=== PATIENT | female | born 1945 | race Caucasian/White ===

== ENCOUNTER 2018-04-20 13:22 | Inpatient (IN) | payer MEDICARE ==
--- NOTE | 2018-04-20 15:40 | RAD ---
CHEST ONE VIEW: 04/20/18 COMPARISON: 01/16/14 HISTORY: Weakness. FINDINGS: There are sternotomy wires. Atherosclerosis of the aorta. Normal cardiac silhouette. Pulmonary vessel s and hilum are normal. Costophrenic angles are clear. Chronic changes, without consolidation or mass . No pneumothorax or osseous abnormalities. IMPRESSION: 1. Atherosclerosis. 2. Chronic changes. No acute cardiopulmonary process. POS: [facility]
[2018-04-20 16:19] LABS: #Eosinphils 0.3 thou/uL (0.0-0.7); #Lymphocytes 1.1 thou/uL (1.20-3.40); #Monocytes 0.4 thou/uL (0.11-0.59); #Neutrophils 4.5 thou/uL (1.40-6.50); %Basophils 0.7 % (0.0-1.0); %Eosinophils 4.3 % (0.0-10.0); %Lymphocytes 17.1 % (21.0-51.0); %Monocytes 6.4 % (0.0-10.0); %Neutrophils 71.5 % (42.0-75.0); Hemoglobin 12.6 g/dL (12.0-16.0); Mean Corpuscular Hemoglobin 33.2 pg (27.0-31.0); Mean Platelet Volume 6.8 fL (7.4-10.4); Platelet Count 267 thou/uL (130-400); RBC Distribution Width 11.5 % (11.5-14.5); White Blood Cell (WBC) Count 6.3 thou/uL (4.8-10.8)
[2018-04-20 16:24] LABS: Bilirubin Negative (Negative); Blood, Urine Negative (Negative); Clarity CLEAR (Clear); Glucose, Urine (Dipstick) Negative (Negative); Leukocyte Negative (Negative); Nitrite Negative (Negative); Protein, Urine (Dipstick) Negative (Neg-Trace); Specific Gravity, Urine 1.011 (1.002-1.036); Urobilinogen 0.2 mg/dL (0.2-1.0); pH, Urine 7.5 (5.0-9.0)
--- NOTE | 2018-04-20 16:25 | CT ---
CT HEAD NONCONTRAST: History: Altered mental status. Weakness. FINDINGS: There is no evidence of acute intracranial hemorrhage or infarct. Prominent chronic ischemic small ve ssel disease and diffuse cortical atrophy are apparent. There is no mass effect or shift of midline s tructures. Scattered old lacunar infarcts most noticeable at the right caudate head. Calcification wi thin the arterial structures. IMPRESSION: 1. Chronic type findings and atherosclerosis. 2. No acute intracranial abnormalities are demonstrated. POS: [facility]
[2018-04-20 16:33] LABS: Acetaminophen Less than 6.0 mcg/mL (10.0-30.0); Alcohol Less than 10 mg/dL (Less than 10); Salicylate Less than 8.0 mg/dL (15.0-30.0)
[2018-04-20 16:36] LABS: Amphetamine Not Detected (NotDetected); Barbiturates Screen Detected (NotDetected); Benzodiazepine Screen Detected (NotDetected); Cocaine Metabolite Screen Not Detected (NotDetected); Medtox Control Line Valid? VALID (VALID); Medtox Reader # READER 4; Methadone Not Detected (NotDetected); Methamphetamine Not Detected (NotDetected); Opiate Screen Not Detected (NotDetected); Oxycodone Screen Not Detected (NotDetected); Phencyclidine (PCP) Not Detected (NotDetected); THC/Cannabinoid Screen Not Detected (NotDetected); Tricyclic Screen Not Detected (NotDetected)
[2018-04-20 16:37] LABS: ALT (SGPT) 8 U/L (8-55); AST (SGOT) 14 U/L (5-34); Albumin 4.1 g/dL (3.4-4.8); Alkaline Phosphatase 140 U/L (40-150); Anion Gap 12 mmol/L (10-20); BUN (Urea Nitrogen) 16 mg/dL (9.8-20.1); Bilirubin, Total 0.2 mg/dL (0.2-1.2); CK (CPK) 50 U/L (29-168); Calc. Creatinine Clearance 0 mL/min (70-130); Calcium 9.5 mg/dL (7.8-10.44); Carbon Dioxide 27 mmol/L (23-31); Chloride 99 mmol/L (98-107); Estimated GFR-MDRD 62; Globulin 2.6 g/dL (2.4-3.5); Glucose 101 mg/dL (83-110); Lipase 21 U/L (8-78); Potassium 4.8 mmol/L (3.5-5.1); Protein, Total 6.7 g/dL (6.0-8.3); Sodium 133 mmol/L (136-145)
[2018-04-20] MEDS ORDERED: Sodium Chloride 0.9% 1,000 ML IV SCH (20:04)
[2018-04-20] MEDS ORDERED: hydrALAZINE 20 MG/ML VIAL SLOW IVP PRN (21:17)
[2018-04-20] MEDS ORDERED: diphenhydrAMINE 25 MG CAP PO PRN (21:50)
[2018-04-20] MEDS ORDERED: Acetaminophen 650 MG Suppository PR PRN (21:52)
[2018-04-20] MEDS ORDERED: Guaifenesin DM 100-10/5 ML UDCUP PO PRN (21:52)
[2018-04-20] MEDS ORDERED: Zolpidem Tartrate 5 MG TAB PO PRN (21:52)
[2018-04-20] MEDS ORDERED: Bisacodyl 5 MG TAB PO PRN (21:52)
[2018-04-20] MEDS ORDERED: Senokot S 8.6-50 MG TAB PO PRN (21:52)
[2018-04-20] MEDS ORDERED: Acetaminophen 325 MG TAB PO PRN (21:52)
[2018-04-20] MEDS ORDERED: Dextrose 5% in Water 1,000 ML IV PRN (21:56)
[2018-04-20] MEDS ORDERED: Dextrose 50% Abboject 50 ML SYRINGE SLOW IVP PRN (21:56)
[2018-04-20] MEDS ORDERED: HumaLOG 300 UNITS/3 ML VIAL SC PRN ×2 (21:56)
[2018-04-20] MEDS ORDERED: Nitroglycerin 2% Ointment 1 INCH/1 GM Packet TOP SCH (22:00)
[2018-04-20 23:06] VITALS: BMI 26.2
[2018-04-21 05:58] LABS: Cardiac Risk 2.7 (Less than 4.5)
[2018-04-21] MEDS ORDERED: Loperamide HCl 2 MG CAP PO PRN (07:10)
[2018-04-21] MEDS ORDERED: Eucerin (Mineral Oil/Petrolatum,White) 30 gm Jar TOP PRN (07:10)
[2018-04-21] MEDS ORDERED: HYDROcodone/Acetaminophen 5/325 mg Tablet PO PRN (07:10)
[2018-04-21] MEDS ORDERED: Ondansetron ODT 4 MG TAB PO PRN (07:10)
[2018-04-21] MEDS ORDERED: Diabetic Tussin 200 MG/10 ML UDCUP PO PRN (07:10)
[2018-04-21] MEDS ORDERED: Loratadine 10 MG TAB PO PRN (07:10)
[2018-04-21] MEDS ORDERED: Sodium Chloride 0.65% Nasal 44 ML BOT EA NARE PRN (07:10)
[2018-04-21] MEDS ORDERED: Artificial Tears 18 DROP/0.9 ML EA EYE PRN (07:10)
[2018-04-21] MEDS ORDERED: Cepastat Lozenges 1 LOZ PO PRN (07:10)
[2018-04-21] MEDS ORDERED: Ondansetron PF 4 MG/2 ML Vial IVP PRN (07:10)
[2018-04-21] MEDS ORDERED: Prevnar 13-Val Conj/PF 0.5 ML SYRINGE IM ONE (09:00)
[2018-04-21] MEDS ORDERED: Famotidine 20 MG TAB PO SCH (09:00)
[2018-04-21] MEDS ORDERED: Cyanocobalamin (Vitamin B-12) 1,000 MCG TAB PO SCH (09:00)
[2018-04-21] MEDS ORDERED: Clopidogrel Bisulfate 75 MG TAB PO SCH (09:00)
[2018-04-21] MEDS ORDERED: Atenolol 25 MG TAB PO SCH (09:00)
[2018-04-21] MEDS ORDERED: Famotidine/PF 20 mg/2ml Vial SLOW IVP SCH ×2 (09:00)
[2018-04-21] MEDS ORDERED: Lisinopril 5 MG TAB PO SCH (09:00)
[2018-04-21] MEDS: Lisinopril 20 MG TAB PO SCH (09:48)
[2018-04-21] MEDS: Aspirin 325 MG TAB PO SCH (09:48)
[2018-04-21] MEDS: Calcium Carbonate + Vit D 1 TAB PO SCH ×2 (09:48→22:02)
[2018-04-21] MEDS: Famotidine 20 MG TAB PO SCH (09:48)
[2018-04-21] MEDS: Folic Acid 1 MG TAB PO SCH (09:48)
[2018-04-21] MEDS: Hydrochlorothiazide 25 MG TAB PO SCH (09:49)
[2018-04-21] MEDS: Enoxaparin Sodium 40 MG/0.4 ML SYRINGE SC SCH (09:50)
--- NOTE | 2018-04-21 10:12 | MRI ---
MRI BRAIN WITHOUT CONTRAST: HISTORY: Altered mental status and weakness. FINDINGS: Correlation is made with the CT scan of previous day. Multiple foci of T2 prolongation consistent with chronic small-vessel ischemic disease are seen in th e periventricular white matter. Diffuse cortical atrophy is noted. No restricted diffusion is seen. No evidence of infarct, hemorrhage, midline shift, or abnormal extraaxial fluid collections is seen . The ventricular size is appropriate and the basilar cisterns patent. There is mucosal disease in the paranasal sinuses. IMPRESSION: No evidence of acute intracranial process. POS: [facility]
--- NOTE | 2018-04-21 13:42 | HP ---
PRIMARY CARE PHYSICIAN: Karis Schmidt, nurse practitioner. REASON FOR ADMISSION: Unsteadiness, ataxia. HISTORY OF PRESENT ILLNESS: A 72-year-old female, who has underlying history of epilepsy and she is taking Dilantin therapy. The patient lives at home and for last couple of weeks, the patient was experiencing that she was not able to maintain her balance. She was requiring assistance to walk. She was holding furniture to get around her home. For last couple of days, the patient is even not able to maintain her balance even with holding and she was falling on either side. She did not have any motor weakness. She did not have any upper or lower extremity weakness. She was able to use all 4 limbs without any problem, but only problem was she was not able to maintain her balance. She did not have any diplopia or headache. She did not have any fall or any fall related trauma. She denies any chest pain, palpitation, or fevers. She denies any upper or lower respiratory symptoms. She denies any constipation or diarrhea. She denies any abdominal pain. In the emergency room, she was evaluated. At that time, she was vitals sanchez stable. Her routine blood test showed macrocytosis and Dilantin level was significantly elevated to 45.8. Cardiac markers, BMP, and LFT were unremarkable. The patient denies any orthopnea, PND, or leg swelling. REVIEW OF SYSTEMS: CONSTITUTIONAL: Negative for weight loss or gain, ability to conduct usual activities. SKIN: Negative for rash, itching. EYES: Negative for double vision, pain. ENT/MOUTH: Negative for nose bleeding, neck stiffness, pain, tenderness. CARDIOVASCULAR: Negative for palpitations, dyspnea on exertion, orthopnea. RESPIRATORY: Negative for shortness of breath, wheezing, cough, hemoptysis, fever or night sweats. GASTROINTESTINAL: Negative for poor appetite, abdominal pain, heartburn, nausea, vomiting, constipation, or diarrhea. GENITOURINARY: Negative for urgency, frequency, dysuria, nocturia. MUSCULOSKELETAL: Negative for pain, swelling. NEUROLOGIC/PSYCHIATRIC: Negative for anxiety, depression. ALLERGY/IMMUNOLOGIC: Negative for skin rash, bleeding tendency. Please see my HPI for pertinent positives and negatives. All other review of system reviewed and negative except as mentioned in HPI. PAST MEDICAL HISTORY: Coronary artery disease with history of CABG in 2003. The patient also required stent placement in 2004, diabetes type 2, hypertension, dyslipidemia, epilepsy, and hypothyroidism. PAST SURGICAL HISTORY: CABG in 2004, cholecystectomy, x2, and appendicectomy. PAST PSYCHIATRIC HISTORY: Reviewed and negative. ALLERGIES: NO KNOWN DRUG ALLERGIES. CURRENT HOME MEDICATIONS: 1. Calcium with vitamin D 1 tablet p.o. b.i.d. 2. Vitamin D3 of 5000 units p.o. daily. 3. Vitamin B12 of 500 mcg p.o. daily. 4. Hydrochlorothiazide 12.5 mg daily. 5. Synthroid 25 mcg p.o. daily. 6. Lisinopril 40 mg daily. 7. Dilantin 200 mg p.o. b.i.d. 8. Pravastatin 40 mg p.o. every evening. SOCIAL HISTORY: The patient currently lives in small trailer house. She lives with family. No history of tobacco, alcohol, or illicit drug abuse. FAMILY HISTORY: Positive for diabetes, heart disease among several family members. Mother had lung cancer. Emergency room course reviewed. PHYSICAL EXAMINATION: VITAL SIGNS: On arrival; blood pressure 173/75, pulse 63, respiratory rate 18, temperature 98.6, and saturation 98% on room air. Weight 54.4 kg. GENERAL: The patient is currently alert and oriented x3. No obvious acute distress. HEENT: Head; normocephalic and atraumatic. Eyes; pupils round and reactive to light. Mild nystagmus noted horizontally. NECK: Supple. No JVD. No thyromegaly. No carotid bruit. No jugular venous distention. LUNGS: Clear to auscultation without any rhonchi or rales. CARDIAC: S1 and S2 regular. No murmur. No gallop. No rub. ABDOMEN: Soft. Bowel sounds present. Nontender. Nondistended. No organomegaly. No mass. No suprapubic tenderness. BACK: Unremarkable. No CVA tenderness. EXTREMITIES: Upper extremities; passive movement of all joints is normal. Lower extremity; no edema. Good distal pulsation. No calf tenderness. SKIN: No skin rash. HEMATOLOGIC: No lymphadenopathy. NEUROLOGIC: The patient is alert and oriented x3. Cranial nerve 2 through 12 intact except mild horizontal nystagmus. The patient is not able to maintain her balance while gait testing, but the patient does not have any obvious cerebellar signs. Speech normal. Plantar bilateral flexor reflexes symmetrical. Sensation intact. SIGNIFICANT LABORATORY DATA: EKG showing sinus bradycardia, nonspecific ST-T changes. CT of brain, based on my review, no acute intracranial process. MRI of brain obtained, which is also negative for any acute intracranial process. CBC; WBC 6.3, hemoglobin 12.6, MCV 101, platelets 267. BMP; sodium 133, potassium 4.8, chloride 99, carbon dioxide 27, BUN 16, creatinine 0.89, glucose 101, calcium 9.5. LFT; AST 14, ALT 8, alkaline phosphatase 140, albumin 4.1, and ammonia 34. CK 50. Troponin negative. CRP less than 0.50. Lipase 21. TSH 3.05, triglyceride 91, cholesterol 176, LDL 93, HDL 65. Urinalysis normal. Urine drug screen negative. Dilantin level 45.8. Serum drug screen negative. Chest x-ray based on my review, no acute cardiopulmonary process. ASSESSMENT AND PLAN: Impression: 1. Ataxia, most likely due to Dilantin toxicity. This patient's examination and MRI findings are normal. Does not have any cerebellar etiology. At this point, the patient has supratherapeutic Dilantin level that can explain patient's unsteadiness and ataxia and that is why she is not able to maintain her balance. At this point, I will hold Dilantin therapy. Neurology already consulted and they will decide whether we need to change epilepsy medication to prevent a future problem. We will prefer if we start Keppra 500 mg p.o. b.i.d. in this particular patient because of her history of epilepsy. We will defer that part to Neurology. We will observe this patient while in hospital. She will need PT/OT evaluation. Once her ataxia resolved, then we will consider discharging plan. At this point, the patient does not have any sensory or motor level based on examination. 2. History of diabetes, currently the patient is not taking any medications. She is diet controlled. 3. Hypertension. We will continue lisinopril 40 mg p.o. daily and hydrochlorothiazide 12.5 mg p.o. daily. 4. Macrocytosis. We will start folic acid 1 mg daily and vitamin B12 of 1000 mcg p.o. daily, likely macrocytosis related with Dilantin use. 5. Dyslipidemia. We will continue Lipitor 10 mg p.o. at bedtime. 6. Deep venous thrombosis prophylaxis, Lovenox 40 mg subcu daily. 7. Gastrointestinal prophylaxis, Pepcid 20 mg p.o. daily. CODE STATUS: The patient is full code. The patient does not have any surrogate decision maker. DISPOSITION PLAN: Based on clinical course, we are expecting the patient's stay in hospital more than 2 midnights. Tomorrow, we will check a CK level and vitamin B12 level. Plan of care extensively discussed with the patient in detail. Job ID: [id number]
--- NOTE | 2018-04-21 18:48 | CON ---
DATE OF CONSULTATION: 04/21/2018 REFERRING PHYSICIAN: Todd Mccoy MD REASON FOR NEUROLOGY CONSULT: Leg weakness. HISTORY OF PRESENT ILLNESS: This is a 72-year-old female who states that her legs have been weak for about two weeks. She says it is really not a weakness, it is more of a balance problem. She has a chronic history of double vision, for which she wore prisms in her glasses. She does not have any weakness of her arms. No nausea or vomiting. Her chronic medical problems include seizure disorder for many, many years, coronary artery disease, hypertension, and recent diagnosis of hypothyroidism, she states that she was started on thyroid medication about three weeks ago. She states that she usually takes Dilantin 200 mg in the morning and 200 mg at night and has regular Dilantin levels, but does not think she has had one recently before this admission. PAST MEDICAL HISTORY: Coronary artery disease, hypertension, seizure disorder. She states that her seizures are grand mal seizures and sometimes she has had absent spells. She feels that her seizures are pretty well controlled on the Dilantin. She is not under the care of a neurologist. She has had workups for her seizures in the past and that she was told that they were grand mal seizures and she has been on Dilantin for more than 50 years. She has had diabetes, epilepsy. REVIEW OF SYSTEMS: GENERAL: No fevers or chills. ENT: No stridor. No epistasis. EYES: No photophobia. CARDIOVASCULAR: No chest pain. No passing out. RESPIRATORY: No cough. No shortness of breath. GI: No diarrhea. No constipation. MUSCULOSKELETAL: No joint redness or swelling. SKIN: No rash. No bruising. NEUROLOGIC: No focal weakness. She states that she has had balance problems for about two weeks. HEME: No abnormal clotting. No bleeding tendencies. PAST SURGICAL HISTORY: She has had appendectomy, coronary artery bypass graft, cholecystectomy, , and left knee surgery due to broken kneecap. SOCIAL HISTORY: She does not smoke or drink. Lives at home with family. FAMILY HISTORY: Negative. PHYSICAL EXAMINATION: GENERAL: She is well nourished, awake and alert. VITAL SIGNS: Blood pressure 154/84, pulse 63 regular, temperature 98.9, respiratory rate 18, and O2 saturation 97. HEENT: Negative. No adenopathy. LUNGS: Clear. HEART: No murmurs or gallops. ABDOMEN: Not distended. SKIN: No rashes. JOINTS: No swelling. EXTREMITIES: No clubbing, cyanosis, or edema. NEUROLOGICAL: She is awake, alert, and oriented x3. Cranial nerves 2 through 12 test normally. Pupils are 2 mm and reactive. Carotids no bruits. Motor 5/5 strength in the arms and legs including proximally 5/5 strength. There is a mild fast tremor of the outstretched hands. She states that is of recent onset, maybe 2 or 3 weeks. Coordination, [id number], and [id number] is normal. DTRs are 2+. Toes are downgoing. Sensation is normal to light touch and temperature. LABORATORY AND DIAGNOSTIC FINDINGS: Test results showed that a CT of the head and MRI of the brain shows chronic changes, some atrophy and chronic small-vessel disease. There was no acute stroke. Chest x-ray showed sternotomy wires, atherosclerosis of the aorta. Labs show that there was a Dilantin level on 04/20/2018 of 45.8, therapeutic is 10 to 20. There were also some barbiturates in the urine and benzodiazepines in the urine. Other labs showed a white count of 6.3, hemoglobin 12.6, hematocrit 38.2, MCV 101, MCH 33.2. The patient states she does have a history of low B12 and is on supplementation. Her sedimentation rate was less than 1. Chemistry showed a glucose of 86, triglyceride 91, cholesterol 176, LDL is 93, HDL is 65, TSH is 3.0588. Troponin less than 0.010. Urinalysis showed no protein, no glucose, no ketones, no blood, no nitrites, leukocyte esterase was negative, and the pH was 7.5. CURRENT MEDICATIONS: Current medications in the hospital; 1. Hydrocodone. 2. Artificial Tears. 3. One aspirin a day. 4. Lipitor. 5. Vitamin B12 1000 mcg daily orally. 6. Pepcid. 7. Hydrochlorothiazide. 8. Levothyroxine 25 mcg p.o. daily. 9. Zestril. IMPRESSION: Her neurological examination is normal. She does have what looks like an essential tremor, which she states is of recent onset. Her Dilantin level is high, which could explain her imbalance problem. There does not appear to be any acute stroke or spinal cord problem. PLAN: We will hold her Dilantin and check daily Dilantin levels and restart her Dilantin at a lower dose when her level is closer to 20. Also check her CPK and her B12 level. Possibly the recent starting of the levothyroxine possibly may have interacted with the Dilantin and made the level go up. Job ID: [id number]
[2018-04-21] MEDS ORDERED: Pravastatin Sodium 40 MG TAB PO SCH (21:00)
[2018-04-21] MEDS: Atorvastatin Calcium 10 MG TAB PO SCH (22:02)
[2018-04-22] MEDS: Levothyroxine Sodium 25 MCG TAB PO SCH (06:02)
[2018-04-22] MEDS: Hydrochlorothiazide 25 MG TAB PO SCH (08:38)
[2018-04-22] MEDS: Enoxaparin Sodium 40 MG/0.4 ML SYRINGE SC SCH (08:38)
[2018-04-22] MEDS: Famotidine 20 MG TAB PO SCH (08:38)
[2018-04-22] MEDS: Calcium Carbonate + Vit D 1 TAB PO SCH ×2 (08:39→21:54)
[2018-04-22] MEDS: Lisinopril 20 MG TAB PO SCH (08:40)
[2018-04-22] MEDS: Folic Acid 1 MG TAB PO SCH (08:40)
[2018-04-22] MEDS: Aspirin 325 MG TAB PO SCH (08:40)
--- NOTE | 2018-04-22 10:13 | PDOC.PN ---
- Subjective Encounter Start Date: 04/22/18 Encounter Start Time: 07:10 -: old records requested/rev Patient seen and examined. No new complaints. No overnight events pt feels better, less weak - Objective Resuscitation Status - Order Detail: 04/20/18 21:52 Resuscitation Status Routine Resuscitation Status: FULL: Full Resuscitation MAR Reviewed: Yes Vital Signs & Weight: Vital Signs (12 hours) Temp Pulse Resp BP BP Pulse Ox 04/22/18 08:40 155/79 H 04/22/18 07:49 99.1 F 62 20 155/79 H 96 04/22/18 04:10 98.4 F 62 20 146/76 H 98 Weight Weight 117 lb 1.6 oz I&O: 04/21/18 04/22/18 04/23/18 06:59 06:59 06:59 Intake Total 500 Balance 500 Result Diagrams: 04/20/18 16:00 04/20/18 16:00 Additional Labs: Accuchecks 04/22/18 04/21/18 04/21/18 05:18 21:24 16:34 POC Glucose 85 91 86 04/21/18 10:27 POC Glucose 88 Radiology Reviewed by me: Yes (MRI brain normal, echo normal) EKG Reviewed by me: Yes (nsr) Phys Exam - Physical Examination Constitutional: NAD HEENT: PERRLA, moist MMs, sclera anicteric Neck: no JVD, supple Respiratory: no wheezing, no rales, no rhonchi Cardiovascular: RRR, no significant murmur, no rub Gastrointestinal: soft, non-tender, no distention, positive bowel sounds Musculoskeletal: no edema, pulses present Neurological: non-focal, normal sensation, moves all 4 limbs tremor reduced Lymphatic: no nodes Psychiatric: normal affect, A&O x 3 Skin: no rash, normal turgor Dx/Plan (1) Ataxia Code(s): R27.0 - ATAXIA, UNSPECIFIED Status: Acute (2) Dilantin toxicity Code(s): T42.0X1A - POISONING BY HYDANTOIN DERIVATIVES, ACCIDENTAL, INIT Status: Acute (3) Dyslipidemia Code(s): E78.5 - HYPERLIPIDEMIA, UNSPECIFIED Status: Chronic (4) Epilepsy Code(s): G40.909 - EPILEPSY, UNSP, NOT INTRACTABLE, WITHOUT STATUS EPILEPTICUS Status: Chronic (5) Hypertension Code(s): I10 - ESSENTIAL (PRIMARY) HYPERTENSION Status: Chronic (6) Hypothyroidism Code(s): E03.9 - HYPOTHYROIDISM, UNSPECIFIED Status: Chronic - Plan cont current plan of care, PT/OT, psychosocial rehabilitation counselor * still dilantin level high, will continue to hold * pt does not want to change antiepileptic medication * discussed with neurology * continue PT * will need placement on discharge * medication reviewed as below * symptomatic treatment. Review of Systems - Review of Systems Constitutional: negative: fever, chills, sweats, weakness, malaise, other Eyes: negative: Pain, Vision Change, Conjunctivae Inflammation, Eyelid Inflammation, Redness, Other ENT: negative: Ear Pain, Ear Discharge, Nose Pain, Nose Discharge, Nose Congestion, Mouth Pain, Mouth Swelling, Throat Pain, Throat Swelling, Other Respiratory: negative: Cough, Dry, Shortness of Breath, Hemoptysis, SOB with Excertion, Pleuritic Pain, Sputum, Wheezing Cardiovascular: negative: chest pain, palpitations, orthopnea, paroxysmal nocturnal dyspnea, edema, light headedness, other Gastrointestinal: negative: Nausea, Vomiting, Abdominal Pain, Diarrhea, Constipation, Melena, Hematochezia, Other Genitourinary: negative: Dysuria, Frequency, Incontinence, Hematuria, Retention , Other Musculoskeletal: negative: Neck Pain, Shoulder Pain, Arm Pain, Back Pain, Hand Pain, Leg Pain, Foot Pain, Other Skin: negative: Rash, Lesions, Jerry, Bruising, Other Neurological: Incoordination. negative: Weakness, Numbness, Change in Speech, Confusion, Seizures, Other - Medications/Allergies Allergies/Adverse Reactions: Allergies Allergy/AdvReac Type Severity Reaction Status Date / Time No Known Allergies Allergy Verified 01/16/14 18:13 Medications: Current Medications Acetaminophen (Tylenol) 650 mg PO Q4H PRN PRN Reason: Headache/Fever/Mild Pain (1-3) Hydrocodone Bitart/Acetaminophen ([place] 5/325) 1 tab PO Q4H PRN PRN Reason: Moderate Pain (4-6) Artificial Tears (Tears Naturale) 2 drop EA EYE PRN PRN PRN Reason: Dry Eyes Aspirin (Aspirin) 325 mg PO DAILY [facility] Last Admin: 04/22/18 08:40 Dose: 325 mg Atorvastatin Calcium (Lipitor) 10 mg PO QPM [facility] Last Admin: 04/21/18 22:02 Dose: 10 mg Bisacodyl (Dulcolax) 10 mg PO DAILYPRN PRN PRN Reason: Constipation Calcium/Vitamin D (Caltrate 600 + Vit D) 1 tab PO BID [facility] Last Admin: 04/22/18 08:39 Dose: 1 tab Cholecalciferol (Vitamin D3) 5,000 units PO DAILY [facility] Last Admin: 04/22/18 08:40 Dose: 5,000 units Cyanocobalamin (Vitamin B-12) 1,000 mcg PO DAILY [facility] Dextrose/Water (Dextrose 50%) 25 gm SLOW IVP PRN PRN PRN Reason: Hypoglycemia Diphenhydramine HCl (Benadryl) 25 mg PO Q6H PRN PRN Reason: Itching Enoxaparin Sodium (Lovenox) 40 mg SC 0900 [facility] Last Admin: 04/22/18 08:38 Dose: 40 mg Famotidine (Pepcid) 20 mg PO QAM [facility] Last Admin: 04/22/18 08:38 Dose: 20 mg Folic Acid (Folvite) 1 mg PO DAILY [facility] Last Admin: 04/22/18 08:40 Dose: 1 mg Glucagon (Glucagon) 1 mg IM PRN PRN PRN Reason: Hypoglycemia Guaifenesin (Robitussin Sf) 200 mg PO Q4H PRN PRN Reason: Cough Guaifenesin/Dextromethorphan (Robitussin Dm) 15 ml PO Q4H PRN PRN Reason: Cough Hydralazine HCl (Apresoline) 10 mg SLOW IVP Q4H PRN PRN Reason: BP > 220/110 Last Admin: 04/20/18 21:26 Dose: 10 mg Hydrochlorothiazide (Hydrochlorothiazide) 12.5 mg PO DAILY [facility] Last Admin: 04/22/18 08:38 Dose: 12.5 mg Dextrose/Water (D5w) 1,000 mls @ 0 mls/hr IV .Q0M PRN PRN Reason: Hypoglycemia Insulin Human Lispro (Humalog) 0 units SC .MILD SLIDING SCALE PRN PRN Reason: Mild Correctional Scale Insulin Human Lispro (Humalog) 0 units SC .BEDTIME SLIDING SC PRN PRN Reason: Bedtime Correctional Scale Levothyroxine Sodium (Synthroid) 25 mcg PO 0600 [facility] Last Admin: 04/22/18 06:02 Dose: 25 mcg Lisinopril (Zestril) 40 mg PO DAILY [facility] Last Admin: 04/22/18 08:40 Dose: 40 mg Loperamide HCl (Imodium) 2 mg PO PRN PRN PRN Reason: Diarrhea/Loose Stools Loratadine (Claritin) 10 mg PO DAILYPRN PRN PRN Reason: Sinus Symptoms Mineral Oil/White Petrolatum (Eucerin Cream) 0 gm TOP BIDPRN PRN PRN Reason: Dry Skin Ondansetron HCl (Zofran Odt) 4 mg PO Q6H PRN PRN Reason: Nausea/Vomiting Ondansetron HCl (Zofran) 4 mg IVP Q6H PRN PRN Reason: Nausea/Vomiting Senna/Docusate Sodium (Senokot S) 2 tab PO BIDPRN PRN PRN Reason: Constipation Sodium Chloride (Flush - Normal Saline) 10 ml IVF PRN PRN PRN Reason: Saline Flush Last Admin: 04/21/18 21:59 Dose: 10 ml Sodium Chloride ([place] Nasal [place] 0.65%) 0 ml EA NARE QIDPRN PRN PRN Reason: Nasal Congestion Throat Lozenges (Cepastat Lozenges) 1 win PO Q2H PRN PRN Reason: Sore Throat Zolpidem Tartrate (Ambien) 5 mg PO HSPRN PRN PRN Reason: Insomnia
[2018-04-22] MEDS: Cyanocobalamin (Vitamin B-12) 1,000 MCG TAB PO SCH (10:17)
--- NOTE | 2018-04-22 10:34 | PRG ---
DATE OF SERVICE: 04/22/2018 TYPE OF REPORT: Followup Neurology. PRESENT ILLNESS: Neurology followup for Dilantin toxicity and seizure disorder. The patient states that her balance is a little better today. She has been calling for assistance when she gets up as instructed. She has not had any seizures. She has been on Dilantin for 50 years with pretty good control of her seizures. She also states that she has had like a 30-pound weight loss in the last year. She says it is purposeful. She was recently started on Synthroid about 3 weeks ago. Her Dilantin is still on hold because her level was high. OBJECTIVE: VITAL SIGNS: Temperature 99.1, pulse is 62, respiratory rate is 20, O2 saturation is 96%, blood pressure is 155/79. NEUROLOGIC: She is awake, alert, oriented x3. No nystagmus is seen. Motor 5/5 strength. There is a very minimal tremor of her outstretched hands which is better than yesterday. Coordination is normal. DTRs 2+. LABORATORY DATA: The Dilantin level today is 34.0, therapeutic is 10 to 20. On the , it was 45.8, so it has come down some, on 04/22/2018 it is 34.0. IMPRESSION: Seizure disorder, which is pretty well controlled on Dilantin, possibly her Dilantin level went up due to her weight loss and possibly after the addition of the Synthroid a few weeks ago. PLAN: Discussed with the patient changing to Keppra instead of the Dilantin. She is reluctant to change as am I since she has been pretty well controlled on Dilantin all these years. Advised that she keep a close watch on her Dilantin level with her family doctor and to follow up with Neurology after she gets out. She is advised to not drive because of her seizures, however, she has not had a seizure in many years. We will continue to hold her Dilantin because her level is still high at 34 and when it gets close to 20, we will start it at a lower dose. As an outpatient, she was on 200 mg twice a day, so we will start her off at a lower dose, possibly 300 mg once a day of the extended release. We will get a Dilantin level in the morning and see where the Dilantin level is. Job ID: [id number]
--- NOTE | 2018-04-22 13:17 | EKG ---
Test Reason : Blood Pressure : / mmHG Vent. Rate : 058 BPM Atrial Rate : 058 BPM P-R Int : 164 ms QRS Dur : 092 ms QT Int : 444 ms P-R-T Axes : 000 -25 133 degrees QTc Int : 435 ms Sinus bradycardia RSR' or QR pattern in V1 suggests right ventricular conduction delay Left ventricular hypertrophy with repolarization abnormality Abnormal ECG Confirmed by HARMONY GALLEGOS, SHAUN ([id number]), newspaper photo editor OLGA SMAS ([id number]) on 04/22/2018 1:17:07 PM Referred By: Confirmed By:SHAUN ANTUNEZ MD
[2018-04-22] MEDS: Atorvastatin Calcium 10 MG TAB PO SCH (21:54)
[2018-04-23] MEDS: Levothyroxine Sodium 25 MCG TAB PO SCH (05:55)
[2018-04-23] MEDS: Aspirin 325 MG TAB PO SCH (09:07)
[2018-04-23] MEDS: Calcium Carbonate + Vit D 1 TAB PO SCH ×2 (09:07→21:22)
[2018-04-23] MEDS: Enoxaparin Sodium 40 MG/0.4 ML SYRINGE SC SCH (09:07)
[2018-04-23] MEDS: Folic Acid 1 MG TAB PO SCH (09:08)
[2018-04-23] MEDS: Cyanocobalamin (Vitamin B-12) 1,000 MCG TAB PO SCH (09:08)
[2018-04-23] MEDS: Famotidine 20 MG TAB PO SCH (09:08)
[2018-04-23] MEDS: Lisinopril 20 MG TAB PO SCH (09:08)
[2018-04-23] MEDS: Hydrochlorothiazide 25 MG TAB PO SCH (09:08)
--- NOTE | 2018-04-23 10:25 | PDOC.PN ---
- Subjective Encounter Start Date: 04/23/18 Encounter Start Time: 07:10 p has foot pain when she walk, no swelling, she reports she stepped on hard object, no local skin irritation, she has fungal infection in intertriginous area in both feet - Objective Resuscitation Status - Order Detail: 04/20/18 21:52 Resuscitation Status Routine Resuscitation Status: FULL: Full Resuscitation MAR Reviewed: Yes Vital Signs & Weight: Vital Signs (12 hours) Temp Pulse Resp BP BP BP Pulse Ox 04/23/18 09:08 162/87 H 04/23/18 07:57 99.5 F 63 18 162/87 H 98 04/23/18 03:07 98.9 F 54 L 20 168/79 H 99 04/23/18 00:20 157/83 H 04/22/18 23:10 99.3 F 70 20 166/94 H 98 Weight Weight 117 lb 1.6 oz I&O: 04/22/18 04/23/18 04/24/18 06:59 06:59 06:59 Intake Total 520 Balance 520 Result Diagrams: 04/20/18 16:00 04/20/18 16:00 Additional Labs: Accuchecks 04/23/18 04/22/18 04/22/18 05:32 20:38 16:59 POC Glucose 85 94 82 04/22/18 10:27 POC Glucose 144 H EKG Reviewed by me: Yes (nsr) Phys Exam - Physical Examination Constitutional: NAD HEENT: PERRLA, moist MMs, sclera anicteric Neck: no JVD, supple Respiratory: no wheezing, no rales, no rhonchi Cardiovascular: RRR, no significant murmur, no rub Gastrointestinal: soft, non-tender, no distention, positive bowel sounds Musculoskeletal: no edema, pulses present Neurological: non-focal, normal sensation, moves all 4 limbs tremor reducing Lymphatic: no nodes Psychiatric: normal affect, A&O x 3 Skin: no rash, normal turgor Dx/Plan (1) Ataxia Code(s): R27.0 - ATAXIA, UNSPECIFIED Status: Acute (2) Dilantin toxicity Code(s): T42.0X1A - POISONING BY HYDANTOIN DERIVATIVES, ACCIDENTAL, INIT Status: Acute (3) Dyslipidemia Code(s): E78.5 - HYPERLIPIDEMIA, UNSPECIFIED Status: Chronic (4) Epilepsy Code(s): G40.909 - EPILEPSY, UNSP, NOT INTRACTABLE, WITHOUT STATUS EPILEPTICUS Status: Chronic (5) Hypertension Code(s): I10 - ESSENTIAL (PRIMARY) HYPERTENSION Status: Chronic (6) Hypothyroidism Code(s): E03.9 - HYPOTHYROIDISM, UNSPECIFIED Status: Chronic - Plan cont current plan of care, PT/OT, executive secretary social welfare * nystatin topical powder application as directed * add amlodipine for hypertension * continue PT * will need swing bed on discharge * medication reviewed as below * symptomatic treatment * will recheck dilantin tomorrow. Review of Systems - Review of Systems ENT: negative: Ear Pain, Ear Discharge, Nose Pain, Nose Discharge, Nose Congestion, Mouth Pain, Mouth Swelling, Throat Pain, Throat Swelling, Other Respiratory: negative: Cough, Dry, Shortness of Breath, Hemoptysis, SOB with Excertion, Pleuritic Pain, Sputum, Wheezing Cardiovascular: negative: chest pain, palpitations, orthopnea, paroxysmal nocturnal dyspnea, edema, light headedness, other Gastrointestinal: negative: Nausea, Vomiting, Abdominal Pain, Diarrhea, Constipation, Melena, Hematochezia, Other Genitourinary: negative: Dysuria, Frequency, Incontinence, Hematuria, Retention , Other Musculoskeletal: Foot Pain. negative: Neck Pain, Shoulder Pain, Arm Pain, Back Pain, Hand Pain, Leg Pain, Other Skin: negative: Rash, Lesions, Jerry, Bruising, Other - Medications/Allergies Allergies/Adverse Reactions: Allergies Allergy/AdvReac Type Severity Reaction Status Date / Time No Known Allergies Allergy Verified 01/16/14 18:13 Medications: Current Medications Acetaminophen (Tylenol) 650 mg PO Q4H PRN PRN Reason: Headache/Fever/Mild Pain (1-3) Hydrocodone Bitart/Acetaminophen ([place] 5/325) 1 tab PO Q4H PRN PRN Reason: Moderate Pain (4-6) Artificial Tears (Tears Naturale) 2 drop EA EYE PRN PRN PRN Reason: Dry Eyes Aspirin (Aspirin) 325 mg PO DAILY [facility] Last Admin: 04/23/18 09:07 Dose: 325 mg Atorvastatin Calcium (Lipitor) 10 mg PO QPM [facility] Last Admin: 04/22/18 21:54 Dose: 10 mg Bisacodyl (Dulcolax) 10 mg PO DAILYPRN PRN PRN Reason: Constipation Calcium/Vitamin D (Caltrate 600 + Vit D) 1 tab PO BID [facility] Last Admin: 04/23/18 09:07 Dose: 1 tab Cholecalciferol (Vitamin D3) 5,000 units PO DAILY [facility] Last Admin: 04/23/18 09:07 Dose: 5,000 units Cyanocobalamin (Vitamin B-12) 1,000 mcg PO DAILY [facility] Last Admin: 04/23/18 09:08 Dose: 1,000 mcg Dextrose/Water (Dextrose 50%) 25 gm SLOW IVP PRN PRN PRN Reason: Hypoglycemia Diphenhydramine HCl (Benadryl) 25 mg PO Q6H PRN PRN Reason: Itching Enoxaparin Sodium (Lovenox) 40 mg SC 0900 [facility] Last Admin: 04/23/18 09:07 Dose: 40 mg Famotidine (Pepcid) 20 mg PO QAM [facility] Last Admin: 04/23/18 09:08 Dose: 20 mg Folic Acid (Folvite) 1 mg PO DAILY [facility] Last Admin: 04/23/18 09:08 Dose: 1 mg Glucagon (Glucagon) 1 mg IM PRN PRN PRN Reason: Hypoglycemia Guaifenesin (Robitussin Sf) 200 mg PO Q4H PRN PRN Reason: Cough Guaifenesin/Dextromethorphan (Robitussin Dm) 15 ml PO Q4H PRN PRN Reason: Cough Hydralazine HCl (Apresoline) 10 mg SLOW IVP Q4H PRN PRN Reason: BP > 220/110 Last Admin: 04/20/18 21:26 Dose: 10 mg Hydrochlorothiazide (Hydrochlorothiazide) 12.5 mg PO DAILY [facility] Last Admin: 04/23/18 09:08 Dose: 12.5 mg Dextrose/Water (D5w) 1,000 mls @ 0 mls/hr IV .Q0M PRN PRN Reason: Hypoglycemia Insulin Human Lispro (Humalog) 0 units SC .MILD SLIDING SCALE PRN PRN Reason: Mild Correctional Scale Insulin Human Lispro (Humalog) 0 units SC .BEDTIME SLIDING SC PRN PRN Reason: Bedtime Correctional Scale Levothyroxine Sodium (Synthroid) 25 mcg PO 0600 [facility] Last Admin: 04/23/18 05:55 Dose: 25 mcg Lisinopril (Zestril) 40 mg PO DAILY [facility] Last Admin: 12/16/18 09:08 Dose: 40 mg Loperamide HCl (Imodium) 2 mg PO PRN PRN PRN Reason: Diarrhea/Loose Stools Loratadine (Claritin) 10 mg PO DAILYPRN PRN PRN Reason: Sinus Symptoms Mineral Oil/White Petrolatum (Eucerin Cream) 0 gm TOP BIDPRN PRN PRN Reason: Dry Skin Ondansetron HCl (Zofran Odt) 4 mg PO Q6H PRN PRN Reason: Nausea/Vomiting Ondansetron HCl (Zofran) 4 mg IVP Q6H PRN PRN Reason: Nausea/Vomiting Senna/Docusate Sodium (Senokot S) 2 tab PO BIDPRN PRN PRN Reason: Constipation Sodium Chloride (Flush - Normal Saline) 10 ml IVF PRN PRN PRN Reason: Saline Flush Last Admin: 04/21/18 21:59 Dose: 10 ml Sodium Chloride ([place] Nasal [place] 0.65%) 0 ml EA NARE QIDPRN PRN PRN Reason: Nasal Congestion Throat Lozenges (Cepastat Lozenges) 1 win PO Q2H PRN PRN Reason: Sore Throat Zolpidem Tartrate (Ambien) 5 mg PO HSPRN PRN PRN Reason: Insomnia
[2018-04-23] MEDS ORDERED: Amlodipine 5 MG TAB PO SCH (10:30)
--- NOTE | 2018-04-23 14:19 | PRG ---
DATE OF SERVICE: 04/23/2018 NEUROLOGY FOLLOWUP NOTE PRESENT ILLNESS: Followup for Dilantin toxicity and gait problems. The patient states that she is feeling better and better every day. Her Dilantin is still on hold. She was on Dilantin 200 mg twice a day as an outpatient. About 1 week prior to her balance getting worse, she was started on a low dose of Synthroid for hypothyroidism. She states that she is still calling for nursing program director when she gets up to go to the bathroom or to walk around, but she feels that her balance is much better. She does not complain of weakness of her arms or legs, but mainly balance problems and she denies any numbness. OBJECTIVE: VITAL SIGNS: On exam, blood pressure of 133/75, pulse 60, temperature 98, respiratory rate 20, and O2 saturation is 97% on room air. HEENT: Normal. LUNGS: Clear. EXTREMITIES: No clubbing, cyanosis, or edema. NEUROLOGIC: Awake, alert, and oriented x3. Cranial nerves II through XII are intact. There is no nystagmus. Motor 5/5 strength in the arms and legs. There is no tremor of the outstretched hands. She did have a tremor on admission when her Dilantin level was higher. LABORATORY DATA: Review of labs showed that her Dilantin level today has slowly come down. It is now 28.1, which is still too elevated to restart the Dilantin. Note that her albumin on admission was normal at 4.1. IMPRESSION: The patient had ataxia due to her Dilantin level being too high. She is getting better as the Dilantin level is coming down. PLAN: Recommend restart the Dilantin when her level gets closer to 20, possibly 24 or less. Recommend to start her on Dilantin extended release 300 mg one p.o. daily and she should have close watch of her Dilantin level, CBC, and liver profile, and she should follow up with Neurology when she gets out. Note that the patient has not had a seizure in many years. Seizure precautions were discussed with her. We will get a Dilantin level tomorrow and see where it is and see if we can start her on Dilantin. Job ID: [id number]
[2018-04-23] MEDS: Atorvastatin Calcium 10 MG TAB PO SCH (21:22)
[2018-04-23] MEDS: Nystatin Powder 15 GM BOT TOP SCH (21:22)
[2018-04-24] MEDS: Levothyroxine Sodium 25 MCG TAB PO SCH (06:11)
[2018-04-24] MEDS ORDERED: Hydrochlorothiazide 25 MG TAB PO SCH (07:30)
[2018-04-24] MEDS: Enoxaparin Sodium 40 MG/0.4 ML SYRINGE SC SCH (08:21)
[2018-04-24] MEDS: Aspirin 325 MG TAB PO SCH (08:21)
[2018-04-24] MEDS: Lisinopril 20 MG TAB PO SCH (08:23)
[2018-04-24] MEDS: Cyanocobalamin (Vitamin B-12) 1,000 MCG TAB PO SCH (08:23)
[2018-04-24] MEDS: Famotidine 20 MG TAB PO SCH (08:24)
[2018-04-24] MEDS: Folic Acid 1 MG TAB PO SCH (08:24)
[2018-04-24] MEDS: Nystatin Powder 15 GM BOT TOP SCH (08:24)
[2018-04-24] MEDS: Calcium Carbonate + Vit D 1 TAB PO SCH (08:24)
[2018-04-24] MEDS ORDERED: Amlodipine 5 MG TAB PO SCH ×2 (09:00)
[2018-04-24] MEDS ORDERED: Amlodipine 10 MG TAB PO SCH (09:00)
--- NOTE | 2018-04-24 11:53 | DIS ---
DATE OF ADMISSION: 04/20/2018 DATE OF DISCHARGE: 04/24/2018 PRIMARY CARE PHYSICIAN: [facility] Call Admission. DISCHARGE DISPOSITION: retirement home. PRIMARY DISCHARGE DIAGNOSIS: Ataxia due to Dilantin toxicity. SECONDARY DISCHARGE DIAGNOSES: 1. Hypertension. 2. Hypothyroidism. 3. Epilepsy. 4. Dyslipidemia. PRIMARY PROCEDURE/OPERATION: None. RADIOLOGICAL INVESTIGATIONS: Chest x-ray showed no acute cardiopulmonary process. CT brain negative for any acute intracranial process. MRI brain did not show any acute intracranial process. Echocardiography showed normal EF. LABORATORY DATA: Significant labs; WBC 6.3, hemoglobin 12.6, and platelets 267. Sodium 133, potassium 4.8, BUN 16, and creatinine 0.89. LFT normal. BNP 240.8. Cardiac enzyme negative. CRP less than 0.50. ESR less than 1. TSH 3.05. Vitamin B12 and folate level normal. LDL 93. Urinalysis normal. Urine drug screen showed barbiturate and benzodiazepine. Dilantin level initially 45.8 and on discharge 20.8. Serum drug screen negative. DISCHARGE MEDICATIONS: 1. Calcium with vitamin D one tablet p.o. b.i.d. 2. Vitamin D3 of 5000 units p.o. daily. 3. Vitamin B12 of 500 mcg p.o. daily. 4. Levothyroxine 25 mcg p.o. daily. 5. Lisinopril 40 mg p.o. daily. 6. Amlodipine 10 mg daily. 7. Aspirin 81 mg daily. 8. Lipitor 10 mg p.o. daily. 9. Folic acid 1 mg p.o. daily. 10. Hydrochlorothiazide 25 mg p.o. daily. 11. Dilantin 100 mg p.o. b.i.d. CONTRAINDICATION: None. CODE STATUS: Full code. INPATIENT SENIOR ACCOUNTS PAYABLE SPECIALIST: Dr. Ayaka Leyva, neurologist, was following while in hospital. TEST RESULTS PENDING ON DISCHARGE: None. ALLERGIES: NO KNOWN DRUG ALLERGIES. DISCHARGE PLAN: Post hospital, the patient will follow up with primary care physician in 1 week. HOSPITAL COURSE: A 72-year-old female with above-mentioned medical problem, who was admitted by me. Please see my HPI for further details. The patient was having ataxia, incoordination, and she was not able to maintain her balance at home for last several days. The patient was brought to the ER and subsequently, she was admitted to the stroke floor. Initial evaluation in the emergency room; CT brain and chest x-ray were unremarkable. We did MRI brain that was also negative. Echocardiography was also normal. The patient was examined and evaluated by me. Please see my HPI for further detail. We consulted Neurology and they also agreed with our diagnosis of Dilantin toxicity and ataxia secondary to Dilantin toxicity. The patient was taking Dilantin 200 mg twice daily and recently levothyroxine was added for a new diagnosis of hypothyroidism and we are suspecting drug-drug interaction might have caused Dilantin toxicity. The patient did not want to change her Dilantin medication, which she was taking for a prolonged period of time for her epilepsy and that is why we reduced dose of Dilantin to 100 mg p.o. b.i.d. While in hospital, we noted that her blood pressure was very high and that is why we increased hydrochlorothiazide to 25 mg p.o. daily and amlodipine was also added. The patient was given statin therapy. Rest of medications, she will continue as per previous. The patient is seen and examined at bedside today. All review of systems reviewed and negative. PHYSICAL EXAMINATION: VITAL SIGNS: Currently, temperature 98.4, pulse 63, blood pressure 152/92, weight 117 pounds, and saturation 98% on room air. GENERAL: The patient is currently alert, awake. No obvious acute distress. HEENT: Head; normocephalic, atraumatic. Eyes; pupils are round and reactive to light. Extraocular muscle intact. ENT; oropharynx within normal limits. Moist mucous membranes. No oral lesion. No pharyngeal erythema. No exudate. NECK: Supple. No JVD. No thyromegaly. No carotid bruit. No jugular venous distention. LUNGS: Clear to auscultation without any rhonchi or rales. CARDIAC: S1 and S2 regular without any murmur. ABDOMEN: Soft and benign without any tenderness. EXTREMITIES: No edema. NEUROLOGIC: Nonfocal examination. Overall, the patient is medically stable for discharge. Paperwork for discharge done and discharge medication reconciliation done. TIME SPENT: Total time spent on discharge day, 31 minutes. Job ID: [id number]
[2018-04-24 12:09] VITALS: BP 167/87; TEMP 97.7
== END 2018-04-24 12:28 | DRG 918 ==
LOC: ERS 13:22 → 2SE 20:24
PROVIDERS: ADMIT Family Medicine; ATTEND Family Medicine
DX: T42.0X1A Poisoning by hydantoin derivatives, accidental (unintentional), initial encounter (principal); R27.0 Ataxia, unspecified; E78.5 Hyperlipidemia, unspecified; G40.909 Epilepsy, unspecified, not intractable, without status epilepticus; I10 Essential (primary) hypertension; E03.9 Hypothyroidism, unspecified
CPT/HCPCS: 36415; 36416; 70450; 70551; 71045; 80053; 80061; 80185; 80306; 80307; 81003; 82140; 82550; 82607; 83690; 83880; 84443; 84484; 85025; 85652; 86140; 90471; 90662; 90670; 93005; 93306; G0008; G0009; G8978-GP-CM; G8979-GP-CK; G8987-GO-CJ; G8988-GO-CI; G8996-GN-CI; G8997-GN-CI; J0360; J1650

== ENCOUNTER 2019-10-29 23:25 | Observation (INO) | payer MEDICARE, OTHER ==
[~2019-10-29 23:25] MED LIST: Iopamidol-370 76% 500 ML 1 ML ONE
[2019-10-29 23:47] LABS: #Eosinphils 0.1 thou/uL (0.0-0.7); #Lymphocytes 0.7 thou/uL (1.20-3.40); #Monocytes 0.7 thou/uL (0.11-0.59); #Neutrophils 7.8 thou/uL (1.40-6.50); %Basophils 0.4 % (0.0-1.0); %Eosinophils 0.8 % (0.0-10.0); %Monocytes 7.2 % (0.0-10.0); %Neutrophils 84.7 % (42.0-75.0); Hemoglobin 10.6 g/dL (12.0-16.0); Mean Corpuscular HGB CONC 32.2 g/dL (32.0-36.0); Mean Corpuscular Hemoglobin 34.6 pg (27.0-31.0); Mean Platelet Volume 6.7 fL (7.4-10.4); Platelet Count 258 thou/uL (130-400); RBC Distribution Width 12.4 % (11.5-14.5); Red Blood Cell (RBC) Count 3.07 mill/uL (4.20-5.40); White Blood Cell (WBC) Count 9.2 thou/uL (4.8-10.8)
[2019-10-29 23:55] LABS: INR-International Normal Ratio 1.1; PTT 29.1 sec (22.9-36.1); Prothrombin Time 14.2 sec (12.0-14.7)
[2019-10-30 00:02] LABS: ALT (SGPT) 30 U/L (8-55); AST (SGOT) 29 U/L (5-34); Albumin 3.9 g/dL (3.4-4.8); Alkaline Phosphatase 106 U/L (40-110); Anion Gap 20 mmol/L (10-20); BUN (Urea Nitrogen) 25 mg/dL (9.8-20.1); Bilirubin, Total 0.2 mg/dL (0.2-1.2); CK (CPK) 130 U/L (29-168); Calc. Creatinine Clearance 0 mL/min (70-130); Calcium 9.8 mg/dL (7.8-10.44); Carbon Dioxide 16 mmol/L (23-31); Chloride 99 mmol/L (98-107); Estimated GFR-MDRD 36; Globulin 2.1 g/dL (2.4-3.5); Glucose 93 mg/dL (83-110); Potassium 5.8 mmol/L (3.5-5.1); Sodium 129 mmol/L (136-145)
[2019-10-30 01:42] LABS: Bilirubin Moderate (Negative); Blood, Urine Negative (Negative); Glucose, Urine (Dipstick) Negative (Negative); Leukocyte Negative (Negative); Nitrite Negative (Negative); Protein, Urine (Dipstick) Negative (Neg-Trace); Urobilinogen 0.2 mg/dL (Less than 2)
[2019-10-30 01:43] LABS: Clarity Clear (Clear)
[2019-10-30 01:44] LABS: Bacteria/HPF None Seen HPF (None Seen); RBC/HPF 0-3 HPF (0-3); Squamous Epithelial 0-3 HPF (0-3); WBC/HPF 0-3 HPF (0-3)
[2019-10-30] MEDS ORDERED: Morphine 4 MG/ML VIAL ONE (02:09)
[2019-10-30] MEDS ORDERED: Ondansetron ODT 8 MG TAB ONE (02:09)
[2019-10-30] MEDS ORDERED: Guaifenesin DM 100-10/5 ML UDCUP PO PRN (02:42)
[2019-10-30] MEDS ORDERED: Labetalol HCl 100 MG/20 ML VIAL SLOW IVP PRN (02:42)
[2019-10-30] MEDS ORDERED: Bisacodyl 10 MG SUPP PR PRN (02:42)
[2019-10-30] MEDS ORDERED: Lorazepam 2 MG/ML VIAL SLOW IVP PRN (02:42)
[2019-10-30] MEDS ORDERED: hydrALAZINE 20 MG/ML VIAL SLOW IVP PRN (02:42)
[2019-10-30] MEDS ORDERED: Calcium Carbonate 500 MG ChewTAB PO PRN (02:42)
[2019-10-30] MEDS ORDERED: Senokot S 8.6-50 MG TAB PO PRN (02:42)
--- NOTE | 2019-10-30 03:12 | HP ---
REASON FOR ADMISSION: Possible seizure, possible TIA. HISTORY OF PRESENTING ILLNESS: Please note majority of this history is obtained by talking to Dr. Perez, ER physician, as the patient does not recall what happened at home. According to the ER physician, the patient's daughter was at her bedside and per their conversation, the patient initially woke up with a headache. She initially screamed and complained of right-sided weakness. The patient also was confused and was not communicating well. EMS was summoned and the patient's blood pressure was more than 200. She was initiated on Cardene drip. This has been discontinued upon arrival here. Currently, she is awake, but not fully oriented. She does mention that I need to ask her daughter for any specific questions about her medical illness or her medications. She says she cannot recall them as of now. No complaints of chest pain, palpitation, PND, or orthopnea. No complaints of fever. She does not know what happened yesterday. She does not recall if she had fever yesterday, cough, or expectoration. PAST MEDICAL AND SURGICAL HISTORY: History of seizure disorder. The patient does not know when her last seizure was. History of coronary artery disease with prior CABG and stents, left total knee replacement, hypothyroidism, hypertension, dyslipidemia, osteoporosis, appendectomy, cholecystectomy, x2, and right ankle surgery. CURRENT MEDICATIONS: Please note the patient does not recall any of her medications. Per prior records, and ER records; 1. The patient is on 200 mg of Dilantin in the morning and 100 mg at bedtime. 2. Gabapentin 600 mg p.o. q.a.m. 3. Pravastatin 40 mg p.o. daily. 4. Hydrochlorothiazide 25 mg daily. 5. Lisinopril 40 mg daily. 6. Levothyroxine 25 mcg p.o. daily. 7. Citracal twice daily. 8. Aspirin 81 mg p.o. daily. 9. Sertraline 25 mg daily. 10. Norvasc 10 mg daily. 11. Vitamin D3 of 5000 units p.o. daily. 12. Vitamin B12 of 5000 mcg p.o. daily. ALLERGIES: NO KNOWN DRUG ALLERGIES. PERSONAL HISTORY: Does not abuse alcohol or drugs. No history of smoking. She lives with her and her daughter. FAMILY HISTORY: Both parents are in their 70s. She knows both her parents of cancer, but does not recall the exact variety. CODE STATUS: Full. Power of coat presser is her . REVIEW OF SYSTEMS: CONSTITUTIONAL: Negative for weight loss or gain, ability to conduct usual activities. SKIN: Negative for rash, itching. EYES: Negative for double vision, pain. ENT/MOUTH: Negative for nose bleeding, neck stiffness, pain, tenderness. CARDIOVASCULAR: Negative for palpitations, dyspnea on exertion, orthopnea. RESPIRATORY: Negative for shortness of breath, wheezing, cough, hemoptysis, fever or night sweats. GASTROINTESTINAL: Negative for poor appetite, abdominal pain, heartburn, nausea , vomiting, constipation, or diarrhea. GENITOURINARY: Negative for urgency, frequency, dysuria, nocturia. MUSCULOSKELETAL: Negative for pain, swelling. NEUROLOGIC/PSYCHIATRIC: Negative for anxiety, depression. ALLERGY/IMMUNOLOGIC: Negative for skin rash, bleeding tendency. PHYSICAL EXAMINATION: GENERAL: The patient is a 74-year-old female who is currently not in any distress, but is not fully oriented. VITAL SIGNS: Blood pressure 156/76, pulse 110 per minute, respiratory rate 20 per minute, temperature 99 degrees on arrival, saturating 100% on room air. NECK: Supple. No elevated JVD. HEENT: Eyes; extraocular muscles intact. Pupils reacting to light. Oral cavity, mucous membranes are dry. No exudates or congestion. CARDIOVASCULAR: S1, S2 heard. Regular rhythm. RESPIRATORY: Air entry 1+ bilateral. No rales or rhonchi. ABDOMEN: Soft. Bowel sounds heard. No tenderness, rigidity, or guarding. EXTREMITIES: No peripheral edema or calf tenderness. VASCULAR: Peripheral pulses 1+ bilateral. No ischemic ulcerations or gangrene. CENTRAL NERVOUS SYSTEM: Cranial nerves are grossly intact. Motor system, strength is 5/5 in all 4 extremities. Reflexes are 2+. Babinski is downgoing. PSYCHIATRIC: The patient's mood is euthymic. No hallucinations or delusions. Please note, the patient is not fully oriented. LABORATORY DATA: EKG done shows sinus tach at 110 beats per minute. White count of 9, hemoglobin and hematocrit 10 and 33, platelet count is 258, MCV is 107 with 84% neutrophils. PT/INR, PTT within normal limits. Sodium 129, potassium is 5.8, serum bicarb 16, BUN 25, creatinine 1.4, serum glucose is 93. Liver enzymes within normal limits. First set of cardiac enzymes were negative. Albumin is 3.9. UA is negative for any infection, but has ketones in it. A CT brain and CT angio of brain, official results are pending. Per my review, no acute infarct is seen. CLINICAL IMPRESSION AND PLAN: The patient will be placed under observation on stroke unit for possible seizure versus transient ischemic attack. Per ER physician's conversation with Ms. Bateman's daughter, the patient initially screamed and later developed confusion. She was also noticed to have right-sided weakness. This whole episode seems to be more in favor of seizure than cerebrovascular accident or transient ischemic attack. On arrival, the patient's symptoms rapidly improved with no motor deficits. She was still confused when I examined her around 2:40 a.m. Her daughter is not at her bedside here. We will obtain a complete neurologic workup including an EEG, Neurology consult with Dr. Betancourt. We will also obtain an MRI brain without contrast and echo with 2D Doppler for LV function. We will continue her aspirin, Lipitor, Norvasc, lisinopril at a lower dose, folic acid, vitamin B12, hydrochlorothiazide, Synthroid, melatonin, and phenytoin as before for now. The patient has mild hyperkalemia and hyponatremia. This will be closely monitored. Ms. Bateman also has moderate dehydration and will be gently hydrated with normal saline for now. We will continue to closely monitor her on stroke unit. Job ID: [id number] [facility]
[2019-10-30] MEDS ORDERED: Aspirin 325 MG TAB ONE (03:23)
[2019-10-30 04:36] VITALS: BMI 23.7
[2019-10-30 04:38] LABS: #Lymphocytes 0.7 thou/uL (1.20-3.40); #Monocytes 0.5 thou/uL (0.11-0.59); #Neutrophils 5.4 thou/uL (1.40-6.50); %Basophils 0.5 % (0.0-1.0); %Eosinophils 0.4 % (0.0-10.0); %Monocytes 7.2 % (0.0-10.0); %Neutrophils 80.8 % (42.0-75.0); Hemoglobin 9.8 g/dL (12.0-16.0); Mean Corpuscular HGB CONC 32.2 g/dL (32.0-36.0); Mean Platelet Volume 7.2 fL (7.4-10.4); Platelet Count 228 thou/uL (130-400); RBC Distribution Width 12.3 % (11.5-14.5); Red Blood Cell (RBC) Count 2.81 mill/uL (4.20-5.40); White Blood Cell (WBC) Count 6.7 thou/uL (4.8-10.8)
[2019-10-30] MEDS: Sodium Chloride 0.9% 1,000 ML IV SCH (05:06)
[2019-10-30] MEDS: Levothyroxine Sodium 25 MCG TAB PO SCH (05:06)
[2019-10-30 05:15] LABS: Anion Gap 17 mmol/L (10-20); BUN (Urea Nitrogen) 21 mg/dL (9.8-20.1); Calc. Creatinine Clearance 29 mL/min (70-130); Carbon Dioxide 16 mmol/L (23-31); Cardiac Risk 2.4 (Less than 4.5); Chloride 105 mmol/L (98-107); Cholesterol 122 mg/dl (< 200 Desired); Estimated GFR-MDRD 41; Glucose 80 mg/dL (83-110); HDL Cholesterol 51 mg/dL (>60 Neg Risk); LDL Cholesterol, Calculated 53 mg/dL; Potassium 5.8 mmol/L (3.5-5.1); Sodium 132 mmol/L (136-145); Triglycerides 89 mg/dL (Less than 150)
[2019-10-30] MEDS: Polyethylene Glycol 3350 17 GM Packet PO SCH (08:42)
[2019-10-30] MEDS: Aspirin 81 mg Enteric Coated Tablet PO SCH (08:51)
[2019-10-30] MEDS: Lisinopril 10 MG TAB PO SCH ×2 (08:54→20:08)
[2019-10-30] MEDS: Folic Acid 1 MG TAB PO SCH (08:55)
[2019-10-30] MEDS: Atorvastatin Calcium 10 MG TAB PO SCH (08:55)
[2019-10-30] MEDS: Cyanocobalamin (Vitamin B-12) 1,000 MCG TAB PO SCH (08:56)
[2019-10-30] MEDS: Enoxaparin Sodium 40 MG/0.4 ML SYRINGE SC SCH (08:59)
[2019-10-30] MEDS ORDERED: Amlodipine 10 MG TAB PO SCH (09:00)
[2019-10-30] MEDS ORDERED: Hydrochlorothiazide 25 MG TAB PO SCH (09:00)
[2019-10-30] MEDS ORDERED: Lorazepam 2 MG/ML VIAL SLOW IVP SCH ×2 (09:15→09:30)
--- NOTE | 2019-10-30 09:29 | CT ---
CT OF BRAIN PERFORMED WITHOUT CONTRAST ENHANCEMENT: HISTORY: Right-sided weakness, aphasia. COMPARISON: 04/20/2018 study. FINDINGS: There is some mild ventricular and sulcal prominence. There is decreased attenuation of the perivent ricular white mater consistent with some chronic white matter change. Small old lacunar infarct in t he right periventricular white matter is noted. No hemorrhage or mass effect. Mastoid air cells are clear. There is opacification of the right maxillary sinus. IMPRESSION: No acute intracranial abnormalities. Findings telephoned to Dr. Freire at 2330 hours. CODE CR
[2019-10-30] MEDS ORDERED: DILANTIN 100 MG PO SCH (11:15)
--- NOTE | 2019-10-30 11:36 | CT ---
CT ANGIO OF HEAD AND NECK PERFORMED WITH INTRAVENOUS CONTRAST WITH 3D RECONSTRUCTIONS: HISTORY: Right-sided weakness, aphasia. FINDINGS: The lung apices are clear. A left lobe thyroid nodule is incidentally seen. No jugular chain adenop athy. Parapharyngeal spaces appear clear. Right maxillary sinus is almost completely opacified. The angiographic portion of this examination shows a bovine-type origin of the left common carotid ar brooke from the right innominate. Left vertebral artery is slightly larger than the right. There are areas of narrowing along the course of the right vertebral artery. The main contribution of the basi lar arteries from the left side. The right common carotid artery is tortuous. There is some prominent calcified plaque at the origin of the right internal carotid artery. The degree of stenosis is difficult to assess due to this calc ified plaque. I would estimate it at slightly greater than 50% by NASCET criteria. The external car otid artery is patent. On the left side, there are similar changes with prominent densely calcified plaque formation at the origin of the left internal carotid artery. Again, this makes assessment of the true degree of steno sis difficult, but I would estimate greater than 50% narrowing by NASCET criteria. CT ANGIO OF HEAD PERFORMED WITH INTRAVENOUS CONTRAST ENHANCEMENT WITH 3D RECONSTRUCTIONS: Prominent calcified plaque formation is seen in both cavernous portions of the internal carotid arter ies. This is particularly prominent on the left. On the right side, the right anterior middle cereb ral artery and their branches appear unremarkable. On the left side, the left anterior cerebral artery appears normal. The left middle cerebral artery M1 segment is small, but I see no occlusive thrombus. I see no intraluminal thrombus. Peripheral ve ssels appear to fill fairly symmetrically as compared to the opposite side. IMPRESSION: 1. Densely calcified plaque at the origin of both internal carotid arteries making assessment of chente nosis difficult. This appears to be greater than 50% narrowing bilaterally. 2. Small left middle cerebral artery, but no intraluminal thrombus demonstrated. 3. Findings telephoned to Dr. Freire at 2348 hours. CODE CR
--- NOTE | 2019-10-30 12:10 | CON ---
NEUROLOGY CONSULTATION DATE OF CONSULTATION: 10/30/2019 REASON FOR ADMISSION: Seizure versus TIA. HISTORY OF PRESENT ILLNESS: Ms. Bateman is a 74-year-old female with history significant for seizure disorder, CABG, coronary artery disease, hypertension, dyslipidemia, hypothyroidism, presented to the emergency room after an event of confusion with right-sided weakness. The patient was brought to the emergency room by her daughter and at that time, she was extremely confused and was not able to communicate well. Her blood pressure was greater than 200 and was started on Cardene drip. She does have history of seizures and takes brand-name Dilantin. Dilantin level was checked in the emergency room, which was subtherapeutic at 6.8. The patient denies any weakness at this time. The patient denies nausea, vomiting, headache, chest pain, dizziness, vertigo, loss of vision or loss of consciousness associated with the episode. REVIEW OF SYSTEMS: All systems were reviewed and were negative except the pertinent positives and negatives mentioned in the HPI. PAST MEDICAL HISTORY: Seizure disorder, coronary artery disease, hypertension, dyslipidemia, hypothyroidism. PAST SURGICAL HISTORY: CABG, status post stent placement, left total knee replacement, appendectomy, cholecystectomy, section x2, and status post right ankle surgery. HOME MEDICATIONS: 1. Dilantin 200 mg p.o. q.a.m. and 100 mg p.o. q.p.m. 2. Gabapentin 600 mg p.o. q.a.m. 3. Pravastatin 40 mg p.o. daily. 4. Hydrochlorothiazide 25 mg daily. 5. Lisinopril 40 mg daily. 6. Levothyroxine 25 mcg daily. 7. Citracal twice daily. 8. Aspirin 81 mg daily. 9. Sertraline 25 mg daily. 10. Norvasc 10 mg daily. 11. Vitamin D3 5000 units daily. 12. Vitamin B12 5000 mcg daily. ALLERGIES: NO KNOWN DRUG ALLERGIES. SOCIAL HISTORY: The patient lives with her and daughter. Denies smoking, alcohol, illegal drug use. FAMILY HISTORY: There is family history of cancer. PHYSICAL EXAMINATION: VITAL SIGNS: Blood pressure 150/70, pulse 80, respiratory rate 18. CVS: Regular rate and rhythm. CHEST: Clear. ABDOMEN: Soft. NECK: No carotid bruit. NEUROLOGIC: Mental status; the patient is alert and oriented to person, place, and time. Speech is clear. Fund of knowledge is appropriate. Recent and remote memory intact. Cranial nerves 2 through 12 intact. Motor, muscle tone and bulk are normal. Strength 5/5 bilaterally. Cerebellar, finger-nose testing intact. Sensory intact. Gait deferred due to patient's safety reasons. LABORATORY DATA: Data reviewed. I reviewed the CT scan which was negative for acute intracranial pathology. ASSESSMENT AND PLAN: Ms. Sandra Bateman is admitted to the stroke unit for an episode of confusion associated with right-sided weakness. Differential diagnosis includes transient ischemic attack versus seizure with Hitesh paralysis. The patient has been compliant with the medication, but her level was subtherapeutic at 6.8. She takes brand-name Dilantin only. We will give her an extra dose of 300 mg p.o. q.a.m. now and then restart the home dose of Dilantin and check level in the morning. Neuro checks every 4 hours. Observe seizure precautions. EEG reviewed and is negative for seizure activity. MRI of the brain to rule out acute intracranial process. 2D echo to assess left ventricular function. Continue aspirin and high-intensity statin for secondary stroke prevention. Permissive control of blood pressure in the next 24 hours. Strict control of blood glucose. Continue home medications. Continue medical management per primary team. PT/OT/Speech. We will continue to follow. Thank you for the consult. Job ID: [id number] MTDD
--- NOTE | 2019-10-30 13:22 | EEG ---
DATE OF SERVICE: 10/30/2019 ATTENDING: Maddison Betancourt MD This EEG was performed using 24-channel [employer] video digital EEG machine with 24-disk electrodes. This was an extended 2 hours 5 minutes of inpatient video EEG recording. BACKGROUND: There is a nonsustained posterior background rhythm of 6 to 7 hertz. Minimal reactivity is seen with eye opening and closure. HYPERVENTILATION: No significant response seen with hyperventilation. PHOTIC STIMULATION: No significant response seen with photic stimulation. SLEEP: Drowsiness and sleep were observed. EEG DIAGNOSES: 1. Intermittent irregular theta activity seen throughout the recording. 2. Slow nonsustained posterior background rhythm. CLINICAL INTERPRETATION: This EEG is consistent with moderate generalized nonspecific cerebral dysfunction. No ictal or interictal epileptiform abnormalities seen during the recording. Job ID: [id number]
--- NOTE | 2019-10-30 14:23 | MRI ---
MRI BRAIN WITHOUT CONTRAST: HISTORY: TIA, right-sided weakness, aphasia. COMPARISON: 04/21/2018. CORRELATION: CT and CTA of brain of previous day. FINDINGS: No restricted diffusion is seen. Multiple foci of T2 prolongation consistent with chronic small-vess el ischemic disease are again seen in the periventricular white matter. There is diffuse cortical at rophy. The ventricular size is appropriate and the basilar cisterns patent. No evidence of acute infarct, hemorrhage, midline shift, or abnormal extraaxial fluid collections is seen. There is mucosal disease in the paranasal sinuses. IMPRESSION: Chronic changes. No evidence of acute intracranial process. POS: [facility]
[2019-10-30] MEDS ORDERED: Sodium Chloride 0.9% 500 ML IV SCH (15:30)
[2019-10-30 16:06] LABS: #Basophils 0.1 thou/uL (0.0-0.2); #Eosinphils 0.1 thou/uL (0.0-0.7); #Lymphocytes 1.3 thou/uL (1.20-3.40); #Monocytes 0.5 thou/uL (0.11-0.59); #Neutrophils 2.8 thou/uL (1.40-6.50); %Basophils 1.5 % (0.0-1.0); %Eosinophils 2.8 % (0.0-10.0); %Lymphocytes 26.8 % (21.0-51.0); %Monocytes 9.5 % (0.0-10.0); %Neutrophils 59.4 % (42.0-75.0); Hemoglobin 9.5 g/dL (12.0-16.0); Mean Corpuscular HGB CONC 33.1 g/dL (32.0-36.0); Mean Corpuscular Hemoglobin 35.6 pg (27.0-31.0); Mean Platelet Volume 7.1 fL (7.4-10.4); Platelet Count 205 thou/uL (130-400); RBC Distribution Width 12.5 % (11.5-14.5); Red Blood Cell (RBC) Count 2.65 mill/uL (4.20-5.40); White Blood Cell (WBC) Count 4.7 thou/uL (4.8-10.8)
[2019-10-30 16:31] LABS: Anion Gap 18 mmol/L (10-20); BUN (Urea Nitrogen) 18 mg/dL (9.8-20.1); Calc. Creatinine Clearance 30 mL/min (70-130); Carbon Dioxide 16 mmol/L (23-31); Chloride 105 mmol/L (98-107); Estimated GFR-MDRD 43; Glucose 64 mg/dL (83-110); Potassium 5.7 mmol/L (3.5-5.1); Sodium 133 mmol/L (136-145)
[2019-10-30] MEDS: DILANTIN 100 MG PO SCH (20:07)
[2019-10-30] MEDS: Melatonin 3 MG TAB PO SCH (20:08)
[2019-10-31] MEDS: Sodium Chloride 0.9% 1,000 ML IV SCH (05:06)
[2019-10-31] MEDS: Acetaminophen 325 MG TAB PO PRN ×2 (05:14→23:29)
[2019-10-31] MEDS: Levothyroxine Sodium 25 MCG TAB PO SCH (05:14)
[2019-10-31] MEDS: Ondansetron PF 4 MG/2 ML Vial IVP PRN ×2 (08:39→15:50)
[2019-10-31] MEDS: Polyethylene Glycol 3350 17 GM Packet PO SCH (08:48)
[2019-10-31] MEDS: Enoxaparin Sodium 40 MG/0.4 ML SYRINGE SC SCH (08:48)
[2019-10-31] MEDS: Lisinopril 10 MG TAB PO SCH (08:49)
[2019-10-31] MEDS: Aspirin 81 mg Enteric Coated Tablet PO SCH (08:49)
[2019-10-31] MEDS: Atorvastatin Calcium 10 MG TAB PO SCH (08:49)
[2019-10-31] MEDS: Folic Acid 1 MG TAB PO SCH (08:49)
[2019-10-31] MEDS: Cyanocobalamin (Vitamin B-12) 1,000 MCG TAB PO SCH (08:50)
[2019-10-31] MEDS: Amlodipine 5 MG TAB PO SCH (08:51)
[2019-10-31] MEDS: DILANTIN 100 MG PO SCH ×2 (08:53→20:22)
--- NOTE | 2019-10-31 12:39 | PDOC.HOSPP ---
- Subjective Encounter Date: 10/31/19 Subjective: NEUROLOGY PROGRESS NOTE Patient is alert, oriented and following commands. Deficits resolved and now at her basline. Daughter at bedside. - Objective Vital Signs & Weight: Vital Signs (12 hours) Temp Pulse Resp BP BP Pulse Ox 10/31/19 11:57 98.9 F 76 16 131/60 98 10/31/19 08:51 85 10/31/19 08:49 160/69 H 10/31/19 07:50 98.3 F 99 18 160/69 H 98 10/31/19 04:00 98.6 F 67 14 135/68 98 Weight Admit Weight 105 lb 13.12 oz Weight 105 lb 13.12 oz I&O: 10/30/19 10/31/19 11/01/19 06:59 06:59 06:59 Intake Total 30 1634 200 Output Total 1300 Balance 30 334 200 Result Diagrams: 10/30/19 15:55 10/30/19 15:55 Radiology Reviewed by me: Yes EKG Reviewed by me: Yes Hospitalist ROS - Review of Systems Constitutional: denies: fever, chills, sweats, weakness, malaise, other Eyes: denies: pain, vision change, conjunctivae inflammation, eyelid inflammation, redness, other ENT: denies: ear pain, ear discharge, nose pain, nose discharge, nose congestion , mouth pain, mouth swelling, throat pain, throat swelling, other Respiratory: denies: cough, dry, shortness of breath, hemoptysis, SOB with excertion, pleuritic pain, sputum, wheezing, other Cardiovascular: denies: chest pain, palpitations, orthopnea, paroxysmal noc. dyspnea, edema, light headedness, other Gastrointestinal: denies: nausea, vomiting, abdominal pain, diarrhea, constipation, melena, hematochezia, other Genitourinary: denies: dysuria, frequency, incontinence, hematuria, retention, other Musculoskeletal: denies: neck pain, shoulder pain, arm pain, back pain, hand pain, leg pain, foot pain, other Skin: denies: rash, lesions, horacio, bruising, other Neurological: denies: weakness, numbness, incoordination, change in speech, confusion, seizures, other - Medication Medications: Active Medications Generic Name Dose Route Start Last Admin Trade Name Freq PRN Reason Stop Dose Admin Acetaminophen 650 mg 10/30/19 02:42 10/31/19 05:14 Tylenol PO 650 mg Q4H PRN Administration Headache/Fever/Mild Pain (1-3) Amlodipine Besylate 5 mg 10/30/19 15:20 10/31/19 08:51 Norvasc PO 5 mg DAILY CARA Administration Aspirin 81 mg 10/30/19 09:00 10/31/19 08:49 Ecotrin PO 81 mg DAILY CARA Administration Atorvastatin Calcium 10 mg 10/30/19 09:00 10/31/19 08:49 Lipitor PO 10 mg DAILY CARA Administration Cyanocobalamin 500 mcg 10/30/19 09:00 10/31/19 08:50 Vitamin B-12 PO 500 mcg DAILY CARA Administration Enoxaparin Sodium 40 mg 10/30/19 09:00 10/31/19 08:48 Lovenox SC 40 mg 0900 CARA Administration Folic Acid 1 mg 10/30/19 09:00 10/31/19 08:49 Folvite PO 1 mg DAILY CARA Administration Sodium Chloride 1,000 mls @ 50 mls/hr 10/30/19 02:45 10/31/19 05:06 Normal Saline 0.9% IV 1,000 mls .Q20H CARA Administration Levothyroxine Sodium 25 mcg 10/30/19 06:00 10/31/19 05:14 Synthroid PO 25 mcg 0600 CARA Administration Melatonin 9 mg 10/30/19 21:00 10/30/19 20:08 Melatonin PO 9 mg HS CARA Administration Ondansetron HCl 4 mg 10/30/19 02:42 10/31/19 08:39 Zofran IVP 4 mg Q6H PRN Administration Nausea/Vomiting Pantoprazole Sodium 40 mg 10/30/19 09:00 10/31/19 08:49 Protonix PO 40 mg DAILY CARA Administration Dilantin 100 Mg 0 each 10/30/19 21:00 10/30/19 20:07 PO 1 each HS CARA Administration Dilantin 100 Mg 0 each 10/31/19 09:00 10/31/19 08:53 PO 1 each DAILY CARA Administration Polyethylene Glycol 17 gm 10/30/19 09:00 10/31/19 08:48 Miralax PO 17 gm DAILY CARA Administration - Exam General Appearance: awake alert Eye: PERRL ENT: normocephalic atraumatic Neck: supple Heart: RRR Respiratory: CTAB Gastrointestinal: soft Extremities: no cyanosis Skin: normal turgor Neurological: cranial nerve grossly intact, normal sensation to touch, no weakness, no focal deficits, no new deficit Musculoskeletal: normal tone, normal strength, no muscle wasting Psychiatric: normal affect, normal behavior, A&O x 3, oriented to person, oriented to place, oriented to time Hosp A/P (1) TIA (transient ischemic attack) Code(s): G45.9 - TRANSIENT CEREBRAL ISCHEMIC ATTACK, UNSPECIFIED Status: Acute Plan: 74 year old with an episode of confusion with right sided deficits and slurred speech which resolved . Differential diagnosis TIA versus breakthrough seizure . Per daughter, she ,ore likely has stroke loke seizure rather than her typical seizure activity. MRI brain reviewed which was ngative for acute intracranial process Telemetry. Neurochecks every 4 hours. Strict BP and BG control . Aspirin and statin for secondary stroke prevention. PT/OT/Speech. 2D echo completed. No thrombus or PFO. Bilateral ICA greater than 50% stenosis on CTA. Consider CV surgery input. Continue medical management per primary team. (2) Epilepsy Code(s): G40.909 - EPILEPSY, UNSP, NOT INTRACTABLE, WITHOUT STATUS EPILEPTICUS Status: Chronic Plan: EEG reviewed which was negative for seizure activity. Dilantin level subtherapeutic. Additional dose given. Dilantin level this morning within therapeutic range. Observe seizure precaution. Continue dilantin brand name 200 mg q am and 100 mg qpm. (3) Dyslipidemia Code(s): E78.5 - HYPERLIPIDEMIA, UNSPECIFIED Status: Chronic Plan: Continue medical management per primary team. (4) Hypertension Code(s): I10 - ESSENTIAL (PRIMARY) HYPERTENSION Status: Chronic Plan: Continue home medications and medical management per primary team. (5) Hypothyroidism Code(s): E03.9 - HYPOTHYROIDISM, UNSPECIFIED Status: Chronic Plan: Continue synthroid. - Plan plan discussed w/ family, PT/OT (Plan discussed with daughter.)
--- NOTE | 2019-10-31 12:42 | PDOC.HOSPP ---
- Subjective Encounter Date: 10/31/19 Encounter Time: 12:30 Subjective: f/u for Epilepsy on current Dilantin. Feels ok overall without recurrent seizures. - Objective Vital Signs & Weight: Vital Signs (12 hours) Temp Pulse Resp BP BP Pulse Ox 10/31/19 11:57 98.9 F 76 16 131/60 98 10/31/19 08:51 85 10/31/19 08:49 160/69 H 10/31/19 07:50 98.3 F 99 18 160/69 H 98 10/31/19 04:00 98.6 F 67 14 135/68 98 Weight Admit Weight 105 lb 13.12 oz Weight 105 lb 13.12 oz I&O: 10/30/19 10/31/19 11/01/19 06:59 06:59 06:59 Intake Total 30 1634 200 Output Total 1300 Balance 30 334 200 Result Diagrams: 10/30/19 15:55 10/30/19 15:55 Additional Labs: Laboratory Tests 10/29/19 10/30/19 10/30/19 23:42 04:23 04:23 Sodium 129 L 132 L Potassium 5.8 H 5.8 H Creatinine 1.41 H 1.28 H Ammonia Triglycerides 89 Cholesterol 122 LDL Cholesterol, Calc 53 HDL Cholesterol 51 TSH 3rd Generation 1.7116 Phenytoin 10/30/19 10/30/19 10/31/19 09:28 15:56 05:04 Sodium Potassium Creatinine Ammonia 20 Triglycerides Cholesterol LDL Cholesterol, Calc HDL Cholesterol TSH 3rd Generation Phenytoin 6.8 L 10.9 Radiology Reviewed by me: Yes (Echo - EF 55-60%, no thrombus) EKG Reviewed by me: Yes (Tele - SR) Hospitalist ROS - Medication Medications: Active Medications Generic Name Dose Route Start Last Admin Trade Name Freq PRN Reason Stop Dose Admin Acetaminophen 650 mg 10/30/19 02:42 10/31/19 05:14 Tylenol PO 650 mg Q4H PRN Administration Headache/Fever/Mild Pain (1-3) Amlodipine Besylate 5 mg 10/30/19 15:20 10/31/19 08:51 Norvasc PO 5 mg DAILY CARA Administration Aspirin 81 mg 10/30/19 09:00 10/31/19 08:49 Ecotrin PO 81 mg DAILY CARA Administration Atorvastatin Calcium 10 mg 10/30/19 09:00 10/31/19 08:49 Lipitor PO 10 mg DAILY CARA Administration Cyanocobalamin 500 mcg 10/30/19 09:00 10/31/19 08:50 Vitamin B-12 PO 500 mcg DAILY CARA Administration Enoxaparin Sodium 40 mg 10/30/19 09:00 10/31/19 08:48 Lovenox SC 40 mg 0900 CARA Administration Folic Acid 1 mg 10/30/19 09:00 10/31/19 08:49 Folvite PO 1 mg DAILY CARA Administration Sodium Chloride 1,000 mls @ 50 mls/hr 10/30/19 02:45 10/31/19 05:06 Normal Saline 0.9% IV 1,000 mls .Q20H CARA Administration Levothyroxine Sodium 25 mcg 10/30/19 06:00 10/31/19 05:14 Synthroid PO 25 mcg 0600 CARA Administration Melatonin 9 mg 10/30/19 21:00 10/30/19 20:08 Melatonin PO 9 mg HS CARA Administration Ondansetron HCl 4 mg 10/30/19 02:42 10/31/19 08:39 Zofran IVP 4 mg Q6H PRN Administration Nausea/Vomiting Pantoprazole Sodium 40 mg 10/30/19 09:00 10/31/19 08:49 Protonix PO 40 mg DAILY CARA Administration Dilantin 100 Mg 0 each 10/30/19 21:00 10/30/19 20:07 PO 1 each HS CARA Administration Dilantin 100 Mg 0 each 10/31/19 09:00 10/31/19 08:53 PO 1 each DAILY CARA Administration Polyethylene Glycol 17 gm 10/30/19 09:00 10/31/19 08:48 Miralax PO 17 gm DAILY CARA Administration - Exam General Appearance: NAD, awake alert Eye: PERRL, anicteric sclera ENT: normocephalic atraumatic, no oropharyngeal lesions Neck: supple, symmetric, no JVD, no thyromegaly, no lymphadenopathy Heart: RRR, no murmur, no gallops, no rubs, normal peripheral pulses Heart - other findings: S1, S2 Respiratory: CTAB, no wheezes, no rales, no ronchi, normal chest expansion Gastrointestinal: soft, non-tender, non-distended, normal bowel sounds, no palpable masses Extremities: no cyanosis, no clubbing, no edema Skin: normal turgor, no lesions Neurological: cranial nerve grossly intact, no new deficit Musculoskeletal: normal tone, normal strength, no muscle wasting Psychiatric: normal affect, A&O x 3 Hosp A/P - Plan old records reviewed/req Recurrent Seizure with Tod's Paralysis - continue Dilantin, seizure precautions Hyperkalemia - likely due to BALDO and KCL supplementation, CaCL IV x 1 now, serial K+ monitoring, hold Lisinopril BALDO - continue IVF's, avoid nephrotoxic meds and limit contrast exposure Hyponatremia - likely iatrogenic due to HCTZ, hold HCTZ Stable overall Continue home medication regimen OOB with PT Continue Dilantin Calcium Chloride IV x 1 dose now AM lab: BMP Cardiovascular surgery consult pending Likely home in am
[2019-10-31] MEDS ORDERED: Calcium Chloride 1 GM/10 ML Abboject SYRINGE IVP SCH (13:00)
[2019-10-31] MEDS: Gabapentin 300 MG CAP PO SCH (13:27)
[2019-10-31] MEDS ORDERED: Gabapentin 300 MG CAP PO SCH (13:30)
[2019-10-31 16:44] LABS: Anion Gap 20 mmol/L (10-20); BUN (Urea Nitrogen) 14 mg/dL (9.8-20.1); Calc. Creatinine Clearance 30 mL/min (70-130); Calcium 10.6 mg/dL (7.8-10.44); Carbon Dioxide 14 mmol/L (23-31); Chloride 104 mmol/L (98-107); Estimated GFR-MDRD 43; Glucose 71 mg/dL (83-110); Potassium 4.7 mmol/L (3.5-5.1); Sodium 133 mmol/L (136-145)
[2019-10-31] MEDS: Melatonin 3 MG TAB PO SCH (20:22)
--- NOTE | 2019-10-31 21:29 | CON ---
DATE OF CONSULTATION: 10/31/2019 PRIMARY CARE PHYSICIAN: Tutu Gomez MD. REQUESTING PHYSICIAN: Maddison Betancourt MD CHIEF COMPLAINT: Headache and nonsensical speech. HISTORY OF PRESENT ILLNESS: The patient is a 74-year-old woman with previous coronary artery bypass grafting and known seizure disorder. Apparently fluent, but nonsensical speech with neologisms or part of the patient's normal constellation of manifestations when she has a seizure, but she was brought to the hospital after she had an episode that was different and that it was associated with severe headache. In fact, the patient called out in pain and when her daughter arrive, she was at her hands on her head at her temples and was repeating a nonsensical word. Her upper extremity strength seemed symmetric and normal. There was no facial droop or distortion. There was no slurring of her speech and when her daughter took her to the bathroom, her daughter noticed no difficulty with walking. All the symptoms resolved. There was no seizure activity noted on an EEG, but her Dilantin level was noted to be nontherapeutic. PAST MEDICAL HISTORY: As above. She has had previous knee replacement. She has hypertension, hypothyroidism. PAST SURGICAL HISTORY: She has had a previous appendectomy, cholecystectomy, and C-sections. HOME MEDICATIONS: 1. Synthroid. 2. Norvasc. 3. Hydrochlorothiazide. 4. Lisinopril. 5. Neurontin. 6. Pravachol. 7. Sertraline. 8. Baby aspirin. 9. Dilantin as well as calcium, vitamin D3, and vitamin B12 supplements. ALLERGIES: SHE DENIES ANY MEDICAL ALLERGIES. SOCIAL HISTORY: She does not smoke. REVIEW OF SYSTEMS: No antecedent eye, speech, facial, or extremity symptoms consistent with TIAs. PHYSICAL EXAMINATION: GENERAL: She appears a bit older than her stated age. She is in no distress, but a little bit emotional when contemplating the potential recommendation for surgery. VITAL SIGNS: In the emergency room, her heart rate was 112 and blood pressure 156/76, although by report, initial blood pressure of the patient, EMS took on her, was in excess of 200 systolic. Currently, her heart rate has mostly been in the mid 60s to mid 80s. Blood pressure 130/160 over 60/70 range. She has been afebrile and room air O2 saturations are 98%. She perhaps has some very soft carotid bruits bilaterally. HEART: She has a regular rate and rhythm. CHEST: Clear to auscultation. NEUROLOGIC: Cranial nerves 2 through 12 are grossly intact as is upper and lower extremity strength. LABORATORY DATA: Her laboratory exam showed white count of 9.2, hemoglobin 10.6, hematocrit 33.2, and platelets 258,000. Her initial sodium was 129, but has since come up into the 130s. Potassium is 5.8, BUN 25, creatinine 1.41. LFTs were normal. Albumin was 3.9. TSH 1.7116. Dilantin was 6.8 with therapeutic range in our laboratory being [address] and MRI of the brain showed no acute lesions. No mass lesions. No bleeding. EEG showed no seizure activity. CTA of the head and neck showed some densely calcified plaque at the carotid bifurcations extending into the very proximal internal carotids with roughly a 50% stenosis on the right and perhaps about 60% on the left. IMPRESSION AND RECOMMENDATIONS: While the pain that she experienced is not typical of her seizure activity, the nonsensical speech her words were not slurred or garbled and she had no observed focal motor deficits and no CT or MRI evidence to suggest an acute stroke. This really does not sound much like a transient ischemic attack to me and would not pursue it is symptomatic, though borderline degree of stenosis in her left carotid. I would like to see her in the office in a week or 2 or 3 to see if anything new comes up in the history. At that time, I will check a baseline carotid ultrasound comparison and what I would anticipate to be annual surveillance with ultrasounds. Job ID: [id number]
[2019-10-31] MEDS ORDERED: hydrALAZINE 20 MG/ML VIAL SLOW IVP PRN (23:58)
[2019-11-01] MEDS: Sodium Chloride 0.9% 1,000 ML IV SCH (03:10)
[2019-11-01] MEDS: Levothyroxine Sodium 25 MCG TAB PO SCH (06:04)
[2019-11-01 06:07] LABS: Anion Gap 9 mmol/L (10-20); BUN (Urea Nitrogen) 12 mg/dL (9.8-20.1); Calc. Creatinine Clearance 34 mL/min (70-130); Calcium 9.2 mg/dL (7.8-10.44); Carbon Dioxide 21 mmol/L (23-31); Chloride 105 mmol/L (98-107); Estimated GFR-MDRD 49; Glucose 95 mg/dL (83-110); Potassium 4.4 mmol/L (3.5-5.1); Sodium 131 mmol/L (136-145)
[2019-11-01] MEDS: Polyethylene Glycol 3350 17 GM Packet PO SCH (08:28)
[2019-11-01] MEDS: DILANTIN 100 MG PO SCH (08:30)
[2019-11-01] MEDS: Acetaminophen 325 MG TAB PO PRN ×2 (08:31→14:31)
[2019-11-01] MEDS: Cyanocobalamin (Vitamin B-12) 1,000 MCG TAB PO SCH (08:48)
[2019-11-01] MEDS: Folic Acid 1 MG TAB PO SCH (08:49)
[2019-11-01] MEDS: Gabapentin 300 MG CAP PO SCH (08:50)
[2019-11-01] MEDS: Amlodipine 5 MG TAB PO SCH (08:51)
[2019-11-01] MEDS: Atorvastatin Calcium 10 MG TAB PO SCH (08:51)
[2019-11-01] MEDS: Aspirin 81 mg Enteric Coated Tablet PO SCH (08:52)
[2019-11-01] MEDS: Enoxaparin Sodium 40 MG/0.4 ML SYRINGE SC SCH (08:52)
[2019-11-01] MEDS ORDERED: Non-Formulary Item 1 EACH (Gabapentin [Gabapentin] 600 MG) PO SCH (09:00)
[2019-11-01] MEDS ORDERED: Loratadine 10 MG TAB PO SCH (09:00)
[2019-11-01 11:32] VITALS: TEMP 97.9
--- NOTE | 2019-11-01 12:19 | PDOC.HOSPP ---
- Subjective Encounter Date: 11/01/19 Subjective: NEUROLOGY PROGRESS NOTE Patient is alert, oriented and following commands. No acute events overnight. - Objective Vital Signs & Weight: Vital Signs (12 hours) Temp Pulse Resp BP BP Pulse Ox 11/01/19 11:29 97.9 F 76 16 139/71 97 11/01/19 07:33 98.0 F 69 16 163/68 H 96 11/01/19 04:00 98.6 F 60 14 122/57 L 94 L Weight Admit Weight 105 lb 13.12 oz Weight 105 lb 13.12 oz I&O: 10/31/19 11/01/19 11/02/19 06:59 06:59 06:59 Intake Total 1634 1557 Output Total 1300 Balance 334 1557 Result Diagrams: 10/30/19 15:55 11/01/19 05:15 Radiology Reviewed by me: Yes EKG Reviewed by me: Yes Hospitalist ROS - Review of Systems Constitutional: denies: fever, chills, sweats, weakness, malaise, other Eyes: denies: pain, vision change, conjunctivae inflammation, eyelid inflammation, redness, other ENT: denies: ear pain, ear discharge, nose pain, nose discharge, nose congestion , mouth pain, mouth swelling, throat pain, throat swelling, other Respiratory: denies: cough, dry, shortness of breath, hemoptysis, SOB with excertion, pleuritic pain, sputum, wheezing, other Cardiovascular: denies: chest pain, palpitations, orthopnea, paroxysmal noc. dyspnea, edema, light headedness, other Gastrointestinal: denies: nausea, vomiting, abdominal pain, diarrhea, constipation, melena, hematochezia, other Genitourinary: denies: dysuria, frequency, incontinence, hematuria, retention, other Musculoskeletal: denies: neck pain, shoulder pain, arm pain, back pain, hand pain, leg pain, foot pain, other Neurological: reports: weakness. denies: numbness, incoordination, change in speech, confusion, seizures, other - Medication Medications: Active Medications Generic Name Dose Route Start Last Admin Trade Name Freq PRN Reason Stop Dose Admin Acetaminophen 650 mg 10/30/19 02:42 11/01/19 08:31 Tylenol PO 650 mg Q4H PRN Administration Headache/Fever/Mild Pain (1-3) Amlodipine Besylate 5 mg 06/23/20 15:20 11/01/19 08:51 Norvasc PO 5 mg DAILY CARA Administration Aspirin 81 mg 10/30/19 09:00 11/01/19 08:52 Ecotrin PO 81 mg DAILY CARA Administration Atorvastatin Calcium 10 mg 10/30/19 09:00 11/01/19 08:51 Lipitor PO 10 mg DAILY CARA Administration Cyanocobalamin 500 mcg 10/30/19 09:00 11/01/19 08:48 Vitamin B-12 PO 500 mcg DAILY CARA Administration Enoxaparin Sodium 40 mg 10/30/19 09:00 11/01/19 08:52 Lovenox SC 40 mg 0900 CARA Administration Folic Acid 1 mg 10/30/19 09:00 11/01/19 08:49 Folvite PO 1 mg DAILY CARA Administration Gabapentin 600 mg 11/01/19 09:00 11/01/19 08:50 Neurontin PO 600 mg DAILY CARA Administration Hydralazine HCl 10 mg 10/31/19 23:58 10/31/19 23:59 Apresoline SLOW IVP 10 mg Q4H PRN Administration SBP>180 Sodium Chloride 1,000 mls @ 50 mls/hr 10/30/19 02:45 11/01/19 03:10 Normal Saline 0.9% IV 1,000 mls .Q20H CARA Administration Levothyroxine Sodium 25 mcg 10/30/19 06:00 11/01/19 06:04 Synthroid PO 25 mcg 0600 CARA Administration Loratadine 10 mg 11/01/19 09:00 11/01/19 08:47 Claritin PO 10 mg DAILY CARA Administration Melatonin 9 mg 10/30/19 21:00 10/31/19 20:22 Melatonin PO 9 mg HS CARA Administration Ondansetron HCl 4 mg 10/30/19 02:42 10/31/19 15:50 Zofran IVP 4 mg Q6H PRN Administration Nausea/Vomiting Pantoprazole Sodium 40 mg 10/30/19 09:00 11/01/19 08:51 Protonix PO 40 mg DAILY CARA Administration Dilantin 100 Mg 0 each 10/30/19 21:00 10/31/19 20:22 PO 1 each HS CARA Administration Dilantin 100 Mg 0 each 10/31/19 09:00 11/01/19 08:30 PO 1 each DAILY CARA Administration Polyethylene Glycol 17 gm 10/30/19 09:00 11/01/19 08:28 Miralax PO 17 gm DAILY CARA Administration - Exam General Appearance: awake alert Eye: PERRL ENT: normocephalic atraumatic Neck: supple Heart: RRR Respiratory: CTAB Gastrointestinal: soft Extremities: no cyanosis Skin: normal turgor Neurological: cranial nerve grossly intact, normal sensation to touch, no focal deficits, no new deficit Musculoskeletal: normal tone, normal strength, no muscle wasting Psychiatric: normal affect, normal behavior, A&O x 3, oriented to person, oriented to place, oriented to time Hosp A/P (1) TIA (transient ischemic attack) Code(s): G45.9 - TRANSIENT CEREBRAL ISCHEMIC ATTACK, UNSPECIFIED Status: Acute Plan: 4 year old with an episode of confusion with right sided deficits and slurred speech which resolved . Differential diagnosis TIA versus breakthrough seizure . Per daughter, she more likely TIA rather than her typical seizure activity. MRI brain reviewed which was negative for acute intracranial process Telemetry. Neurochecks every 4 hours. Strict BP and BG control . Aspirin and statin for secondary stroke prevention. PT/OT/Speech. 2D echo completed. No thrombus or PFO. Bilateral ICA greater than 50% stenosis on CTA. Consider CV surgery appreciated. Follow up as outpatient. Continue medical management per primary team. (2) Epilepsy Code(s): G40.909 - EPILEPSY, UNSP, NOT INTRACTABLE, WITHOUT STATUS EPILEPTICUS Status: Chronic Plan: EEG reviewed which was negative for seizure activity. Dilantin level subtherapeutic. Additional dose given. Dilantin level this morning within therapeutic range. Observe seizure precautionS. Continue dilantin brand name 200 mg q am and 100 mg qpm. (3) Dyslipidemia Code(s): E78.5 - HYPERLIPIDEMIA, UNSPECIFIED Status: Chronic Plan: Continue high intensity statin for secondary stroke prevention. Continue medical management per primary team. (4) Hypertension Code(s): I10 - ESSENTIAL (PRIMARY) HYPERTENSION Status: Chronic Plan: Strict BP control Continue home medications and medical management per primary team. (5) Hypothyroidism Code(s): E03.9 - HYPOTHYROIDISM, UNSPECIFIED Status: Chronic Plan: Continue synthroid - Plan PT/OT, out of bed/ambulate
[2019-11-01 13:36] VITALS: BP 134/57
--- NOTE | 2019-11-01 21:36 | DIS ---
DATE OF ADMISSION: 10/30/2019 DATE OF DISCHARGE: 11/01/2019 DISCHARGE DIAGNOSES: 1. Breakthrough seizures in the context of epilepsy, stable. 2. Hyperkalemia, resolved. 3. Acute kidney injury on chronic kidney disease stage 3, improved. 4. Hyponatremia mild, likely iatrogenic. 5. Hypertension, stable. CONSULTATIONS: 1. Dr. Betancourt with Neurology Service. 2. Dr. Romero with Cardiovascular Surgery Service. PERTINENT LABORATORY AND X-RAY FINDINGS: Sodium ranged between 129 to 133, potassium ranged between 4.4 to 5.8. Creatinine ranged between 1.09 to 1.41. Estimated GFR ranged between 36 to 49. Serum ammonia level 20. Total cholesterol 122, triglycerides 89, HDL 51, LDL 53. TSH 1.71. CBC showed a hemoglobin ranging between 9.5 to 10.6. Dilantin level ranged between 6.[address] of the brain without contrast dated 10/29/2019, showed no acute intracranial process. CT angiogram of the head and neck dated 10/29/2019, showed densely calcified plaque at the origin of both internal carotid arteries. Questionable greater than 50% narrowing bilaterally. MRI of the brain dated 10/30/2019, showed no acute intracranial process. EEG showed moderate generalized nonspecific cerebral dysfunction. No ictal or interictal epileptiform activity noted. 2D transthoracic echocardiogram dated 10/30/2019, showed ejection fraction of 55% to 60%. No intramural thrombus. HOSPITAL COURSE: The patient was observed on the Stroke Unit after initially presenting with questionable TIA symptoms with associated seizure. The patient underwent extensive evaluation with multiple neuro imaging studies with CT and MRI modalities showing no acute intracranial process. The patient with known seizure disorder on chronic Dilantin, which was subtherapeutic on initial evaluation. The patient was resumed on Dilantin with appropriate dosing with repeat levels showing therapeutic values. The patient was evaluated by the Neurology Service with recommendations to undergo EEG evaluation showing no evidence of recurrent epileptiform activity. The patient was noted with mild stenosis of the bilateral carotid arteries, evaluated by the Vascular Surgery Service without recommendations for an acute intervention or surgical procedure. The patient to continue medical management. The patient was also treated for hyperkalemia with overall resolution by the time of discharge. Overall, the patient did remain clinically stable during the hospital course, tolerating regular oral intake with stable vital signs. I have examined the patient at the time of discharge and discussed followup instructions. The patient verbalized understanding and agreement ready for discharge on 11/01/2019. DISCHARGE MEDICATIONS: 1. Calcium with vitamin D3 one tablet p.o. b.i.d. 2. Vitamin D3 of 5000 units p.o. daily. 3. Vitamin B12 of 2500 mcg p.o. daily. 4. Flonase 1 spray in each naris daily. 5. Gabapentin 600 mg p.o. daily. 6. Levothyroxine 25 mcg p.o. daily. 7. Lisinopril discontinued. 8. Claritin 10 mg p.o. daily. 9. Dilantin 200 mg p.o. daily and 100 mg p.o. at bedtime. 10. Pravachol 40 mg p.o. daily. 11. Sertraline 25 mg p.o. daily. 12. Zinc 50 mg p.o. daily. 13. Amlodipine 10 mg p.o. daily. 14. Enteric-coated aspirin 81 mg p.o. daily. 15. Hydralazine 25 mg p.o. b.i.d. FOLLOWUP: The patient to follow up with Dr. Gomez within 7 days of discharge. The patient will follow up with Dr. Romero in 3 to 4 weeks after discharge. CONDITION ON DISCHARGE: Stable. ACTIVITY: Ad-andi. DIET: Regular. CODE STATUS: Full. DISPOSITION: Home, 11/01/2019. Job ID: [id number]
--- NOTE | 2019-11-04 10:17 | EKG ---
Test Reason : Blood Pressure : / mmHG Vent. Rate : 110 BPM Atrial Rate : 110 BPM P-R Int : 176 ms QRS Dur : 090 ms QT Int : 330 ms P-R-T Axes : 069 -28 122 degrees QTc Int : 446 ms Sinus tachycardia Abnormal ECG Confirmed by LIZ LOWE ([id number]), editorial clerk OLGA SAMS ([id number]) on 11/04/2019 10:17:23 AM Referred By: Confirmed By:LIZ LOWE
== END 2019-11-01 14:52 | disposition home health service (06) ==
LOC: ERS 23:25 → 2SE 10-30 02:24 → CCU 10-31 15:02 → 2SE 10-31 15:05
PROVIDERS: ADMIT Internal Medicine; ATTEND Internal Medicine
DX: G40.909 Epilepsy, unspecified, not intractable, without status epilepticus (principal); G83.84 Todd's paralysis (postepileptic); I12.9 Hypertensive chronic kidney disease with stage 1 through stage 4 chronic kidney disease, or unspecified chronic kidney disease; N18.3 Chronic kidney disease, stage 3 (moderate); N17.9 Acute kidney failure, unspecified; E87.1 Hypo-osmolality and hyponatremia; E87.5 Hyperkalemia; E86.0 Dehydration; I25.10 Atherosclerotic heart disease of native coronary artery without angina pectoris; E03.9 Hypothyroidism, unspecified; E78.5 Hyperlipidemia, unspecified; M81.0 Age-related osteoporosis without current pathological fracture; I65.23 Occlusion and stenosis of bilateral carotid arteries; Z79.82 Long term (current) use of aspirin; Z79.899 Other long term (current) drug therapy; Z95.1 Presence of aortocoronary bypass graft
CPT/HCPCS: 70450; 70496; 70498; 70551; 80048 ×4; 80053; 80061; 80185 ×2; 81003; 82140; 82550; 82962; 84443; 84484; 85025 ×3; 85610; 85730; 93005; 93306; 95712; 95816; 95819; 95957; 96361; 96372 ×3; 96375 ×2; 96376; 97110; 97116 ×3; 97139 ×6; 97530 ×2; 97535 ×2; G0378 ×4; 36415; 36416; 51701; 96374; J0360; J1650; J2060; J2270; J2405; Q0162; Q9967

== ENCOUNTER 2019-11-16 17:42 | Emergency (ER) | payer MEDICARE, OTHER ==
--- NOTE | 2019-11-16 18:54 | RAD ---
Portable frontal chest radiograph: 11/16/2019 COMPARISON: 04/20/2018 HISTORY: Fever with cough and body aches Findings: Stable midline sternotomy wires and mediastinal clips. No pneumothorax or pleural fluid. No focal consolidation or alveolar edema. IMPRESSION: No focal consolidation or alveolar edema.
[2019-11-16 19:08] LABS: #Basophils 0.1 thou/uL (0.0-0.2); #Lymphocytes 1.1 thou/uL (1.20-3.40); #Monocytes 0.5 thou/uL (0.11-0.59); #Neutrophils 3.1 thou/uL (1.40-6.50); %Basophils 1.5 % (0.0-1.0); %Eosinophils 0.4 % (0.0-10.0); %Lymphocytes 23.6 % (21.0-51.0); %Monocytes 9.6 % (0.0-10.0); Hemoglobin 11.6 g/dL (12.0-16.0); Mean Corpuscular HGB CONC 33.6 g/dL (32.0-36.0); Mean Platelet Volume 6.6 fL (7.4-10.4); Platelet Count 392 thou/uL (130-400); RBC Distribution Width 11.9 % (11.5-14.5); Red Blood Cell (RBC) Count 3.32 mill/uL (4.20-5.40); White Blood Cell (WBC) Count 4.8 thou/uL (4.8-10.8)
--- NOTE | 2019-11-16 19:18 | CT ---
CT of the abdomen and pelvis: 11/16/2019 COMPARISON: 11/09/2019 HISTORY: Fever, cough, body aches TECHNIQUE: Axial CT imaging at 5 mm intervals from the lung bases through the pubic symphysis with IV contrast. Coronal and sagittal reformatted imaging obtained. FINDINGS: The visualized lung bases are unremarkable. There is a small sliding-type hiatal hernia. Th ere is no free intraperitoneal air or fluid noted. There is a small fat-containing ventral hernia in the subxiphoid region through which fat and mesenteric vessels extend. This is just anterior and i nferior to the gastric antrum. Additional smaller ventral fat-containing hernias are noted just superior to the level of the umbilicus. The liver and spleen appear grossly unremarkable. The gallbladder is not discretely visualized. The p ancreas, adrenal glands, and kidneys demonstrate no acute findings. Coarse calcifications within the uterus suggest calcified uterine fibroids. There is diverticulosis of the descending colon and sigmoid colon with no evidence for diverticulitis . No evidence for bowel inflammatory change or bowel obstruction. The appendix is not discretely visualized but no right lower quadrant inflammatory change is noted. There is multifocal atherosclerotic calcification of the abdominal aorta and its branches. The pelvis , mesentery, and retroperitoneum demonstrate no evidence for lymphadenopathy. There is multilevel lower lumbar spine degenerative change. Grade 1 L4-5 anterolisthesis noted. Signi ficant multilevel lower lumbar spine facet hypertrophy is present. No worrisome lytic or blastic bone lesion. IMPRESSION: Chronic findings as detailed above. No acute findings are noted.
[2019-11-16 19:23] LABS: ALT (SGPT) 11 U/L (8-55); AST (SGOT) 13 U/L (5-34); Albumin 4.5 g/dL (3.4-4.8); Alkaline Phosphatase 79 U/L (40-110); Anion Gap 15 mmol/L (10-20); BUN (Urea Nitrogen) 12 mg/dL (9.8-20.1); Bilirubin, Total 0.2 mg/dL (0.2-1.2); CK (CPK) 40 U/L (29-168); Calc. Creatinine Clearance 0 mL/min (70-130); Calcium 9.7 mg/dL (7.8-10.44); Carbon Dioxide 18 mmol/L (23-31); Chloride 104 mmol/L (98-107); Estimated GFR-MDRD 61; Globulin 2.5 g/dL (2.4-3.5); Glucose 100 mg/dL (83-110); Potassium 3.6 mmol/L (3.5-5.1); Sodium 133 mmol/L (136-145)
[2019-11-16] MEDS ORDERED: Ondansetron PF 4 MG/2 ML Vial ONE (19:35)
[2019-11-16 19:42] LABS: Bilirubin Negative (Negative); Blood, Urine Negative (Negative); Clarity Clear (Clear); Glucose, Urine (Dipstick) Normal (Negative); Ketone, Urine 10 mg/dL (Negative); Leukocyte Negative Leu/uL (Negative); Nitrite Negative (Negative); Protein, Urine (Dipstick) Negative (Neg-Trace); Urobilinogen Normal mg/dL (Less than 2); pH, Urine 5.5 (5.0-9.0)
[2019-11-19 11:39] LABS: SARS-CoV-2 MS2 Positive; SARS-CoV-2 N Gene Negative; SARS-CoV-2 S Gene Negative; SARS-CoV-2 orf1ab Negative
== END 2019-11-16 21:30 | disposition home or self-care (01) ==
LOC: ERS 17:42
DX: R53.1 Weakness (principal); R10.9 Unspecified abdominal pain; Z20.828 Contact with and (suspected) exposure to other viral communicable diseases; I10 Essential (primary) hypertension; E03.9 Hypothyroidism, unspecified; E78.5 Hyperlipidemia, unspecified; G40.909 Epilepsy, unspecified, not intractable, without status epilepticus; Z79.899 Other long term (current) drug therapy; Z79.84 Long term (current) use of oral hypoglycemic drugs
CPT/HCPCS: 71045; 74177; 80053; 81003; 82550; 83605; 84484; 85025; 87040; 87086; 93005; 94760; 99284; U0003; 36415; 87635; J2405; Q9967

== ENCOUNTER 2020-05-28 20:25 | Inpatient (IN) | payer MEDICARE, OTHER ==
[2020-05-28 21:10] LABS: Bilirubin Negative (Negative); Blood, Urine Negative (Negative); Clarity Clear (Clear); Glucose, Urine (Dipstick) Normal (Negative); Ketone, Urine 40 mg/dL (Negative); Leukocyte Negative Leu/uL (Negative); Nitrite Negative (Negative); Protein, Urine (Dipstick) Negative (Neg-Trace); Specific Gravity, Urine 1.019 (1.002-1.036); Urobilinogen Normal mg/dL (Less than 2); pH, Urine 5.5 (5.0-9.0)
[2020-05-28 21:22] LABS: #Lymphocytes 0.6 thou/uL (1.20-3.40); #Monocytes 0.1 thou/uL (0.11-0.59); #Neutrophils 6.9 thou/uL (1.40-6.50); %Lymphocytes 7.7 % (21.0-51.0); %Monocytes 1.3 % (0.0-10.0); %Neutrophils 90.9 % (42.0-75.0); Hemoglobin 10.9 g/dL (12.0-16.0); Mean Corpuscular HGB CONC 33.6 g/dL (32.0-36.0); Mean Corpuscular Hemoglobin 33.1 pg (27.0-31.0); Mean Corpuscular Volume 98.6 fL (78.0-98.0); Mean Platelet Volume 7.2 fL (7.4-10.4); Platelet Count 316 thou/uL (130-400); RBC Distribution Width 11.5 % (11.5-14.5); Red Blood Cell (RBC) Count 3.29 mill/uL (4.20-5.40); White Blood Cell (WBC) Count 7.6 thou/uL (4.8-10.8)
[2020-05-28 21:33] LABS: ALT (SGPT) 11 U/L (8-55); AST (SGOT) 19 U/L (5-34); Albumin 3.9 g/dL (3.4-4.8); Alkaline Phosphatase 187 U/L (40-110); Anion Gap 22 mmol/L (10-20); BUN (Urea Nitrogen) 35 mg/dL (9.8-20.1); Bilirubin, Total 0.2 mg/dL (0.2-1.2); Calc. Creatinine Clearance 0 mL/min (70-130); Calcium 9.7 mg/dL (7.8-10.44); Carbon Dioxide 13 mmol/L (23-31); Chloride 97 mmol/L (98-107); Globulin 2.7 g/dL (2.4-3.5); Glucose 96 mg/dL (83-110); Protein, Total 6.6 g/dL (6.0-8.3); Sodium 127 mmol/L (136-145)
[2020-05-28] MEDS ORDERED: Ondansetron PF 4 MG/2 ML Vial ONE (22:08)
[2020-05-28] MEDS ORDERED: Labetalol HCl 100 MG/20 ML VIAL ONE (22:08)
[2020-05-29 00:27] LABS: Anion Gap 21 mmol/L (10-20); BUN (Urea Nitrogen) 36 mg/dL (9.8-20.1); Calc. Creatinine Clearance 0 mL/min (70-130); Calcium 9.3 mg/dL (7.8-10.44); Carbon Dioxide 13 mmol/L (23-31); Chloride 99 mmol/L (98-107); Glucose 101 mg/dL (83-110); Potassium 5.3 mmol/L (3.5-5.1); Sodium 128 mmol/L (136-145)
[2020-05-29] MEDS: Sodium Chloride 0.9% 1,000 ML IV SCH ×4 (01:24→17:39)
[2020-05-29] MEDS ORDERED: Sodium Bicarb 50 MEQ/50 ML Abboject 8.4% SYRINGE IVP SCH (04:00)
[2020-05-29 07:54] LABS: Amphetamine Not Detected (NotDetected); Barbiturates Screen Detected (NotDetected); Benzodiazepine Screen Not Detected (NotDetected); Cocaine Metabolite Screen Not Detected (NotDetected); Medtox Control Line Valid? VALID (VALID); Medtox Reader # READER 1; Methadone Not Detected (NotDetected); Methamphetamine Not Detected (NotDetected); Opiate Screen Detected (NotDetected); Oxycodone Screen Not Detected (NotDetected); Phencyclidine (PCP) Not Detected (NotDetected); THC/Cannabinoid Screen Not Detected (NotDetected); Tricyclic Screen Not Detected (NotDetected)
[2020-05-29] MEDS: Enoxaparin Sodium 40 MG/0.4 ML SYRINGE SC SCH (09:21)
[2020-05-29] MEDS ORDERED: Mirtazapine 15 MG TAB PO PRN (12:26)
[2020-05-29] MEDS ORDERED: levETIRAcetam in NS 1,000 MG in Premix Bag 1 BAG IVPB SCH (13:15)
[2020-05-29 13:48] LABS: SARS-CoV-2 PCR by NAA Not Detected (NotDetected)
[2020-05-29] MEDS: hydrALAZINE 25 MG TAB PO SCH (20:39)
[2020-05-29] MEDS: Acetaminophen 325 MG TAB PO PRN (20:39)
[2020-05-29] MEDS: levETIRAcetam 500 MG TAB PO SCH (20:40)
[2020-05-29] MEDS ORDERED: FLU VACC QS2020-21(65YR UP)/PF 240 MCG/0.7 ML SYRINGE IM ONE (21:00)
[2020-05-29 21:10] LABS: Anion Gap 16 mmol/L (10-20); BUN (Urea Nitrogen) 27 mg/dL (9.8-20.1); Calc. Creatinine Clearance 37 mL/min (70-130); Calcium 9.2 mg/dL (7.8-10.44); Carbon Dioxide 16 mmol/L (23-31); Chloride 105 mmol/L (98-107); Glucose 88 mg/dL (83-110); Potassium 4.1 mmol/L (3.5-5.1); Sodium 133 mmol/L (136-145)
[2020-05-30 04:57] LABS: #Basophils 0.1 thou/uL (0.0-0.2); #Lymphocytes 0.8 thou/uL (1.20-3.40); #Monocytes 0.6 thou/uL (0.11-0.59); #Neutrophils 8.9 thou/uL (1.40-6.50); %Basophils 0.8 % (0.0-1.0); %Eosinophils 0.1 % (0.0-10.0); %Lymphocytes 7.3 % (21.0-51.0); %Monocytes 6.2 % (0.0-10.0); %Neutrophils 85.7 % (42.0-75.0); Hemoglobin 9.2 g/dL (12.0-16.0); Mean Corpuscular HGB CONC 33.2 g/dL (32.0-36.0); Mean Corpuscular Hemoglobin 32.5 pg (27.0-31.0); Mean Corpuscular Volume 97.9 fL (78.0-98.0); Mean Platelet Volume 7.3 fL (7.4-10.4); Platelet Count 281 thou/uL (130-400); RBC Distribution Width 11.7 % (11.5-14.5); Red Blood Cell (RBC) Count 2.83 mill/uL (4.20-5.40); White Blood Cell (WBC) Count 10.4 thou/uL (4.8-10.8)
[2020-05-30 05:19] LABS: Anion Gap 17 mmol/L (10-20); BUN (Urea Nitrogen) 28 mg/dL (9.8-20.1); Calc. Creatinine Clearance 37 mL/min (70-130); Calcium 9.2 mg/dL (7.8-10.44); Carbon Dioxide 14 mmol/L (23-31); Chloride 105 mmol/L (98-107); Glucose 81 mg/dL (83-110); Potassium 3.8 mmol/L (3.5-5.1); Sodium 132 mmol/L (136-145)
[2020-05-30] MEDS: Levothyroxine Sodium 25 MCG TAB PO SCH (06:51)
[2020-05-30] MEDS: Sodium Chloride 0.9% 1,000 ML IV SCH ×3 (06:51→20:09)
[2020-05-30] MEDS ORDERED: Lorazepam 2 MG/ML VIAL SLOW IVP SCH (08:30)
[2020-05-30] MEDS: Gabapentin 300 MG CAP PO SCH (09:26)
[2020-05-30] MEDS: levETIRAcetam 500 MG TAB PO SCH ×2 (09:26→20:42)
[2020-05-30] MEDS: Lisinopril 20 MG TAB PO SCH (09:26)
[2020-05-30] MEDS: Aspirin 81 mg Enteric Coated Tablet PO SCH (09:27)
[2020-05-30] MEDS: Atorvastatin Calcium 10 MG TAB PO SCH (09:27)
[2020-05-30] MEDS: hydrALAZINE 25 MG TAB PO SCH ×2 (09:27→20:42)
[2020-05-30] MEDS: Amlodipine 10 MG TAB PO SCH (09:27)
[2020-05-30] MEDS: Loratadine 10 MG TAB PO SCH (09:27)
[2020-05-30] MEDS: Enoxaparin Sodium 40 MG/0.4 ML SYRINGE SC SCH (09:28)
[2020-05-30] MEDS: Acetaminophen 325 MG TAB PO PRN (14:47)
[2020-05-31 04:48] LABS: #Basophils 0.1 thou/uL (0.0-0.2); #Lymphocytes 0.9 thou/uL (1.20-3.40); #Monocytes 0.7 thou/uL (0.11-0.59); #Neutrophils 3.4 thou/uL (1.40-6.50); %Eosinophils 0.9 % (0.0-10.0); %Lymphocytes 18.4 % (21.0-51.0); %Monocytes 13.5 % (0.0-10.0); %Neutrophils 66.3 % (42.0-75.0); Mean Corpuscular HGB CONC 33.5 g/dL (32.0-36.0); Mean Corpuscular Hemoglobin 32.8 pg (27.0-31.0); Mean Corpuscular Volume 97.9 fL (78.0-98.0); Mean Platelet Volume 6.7 fL (7.4-10.4); Platelet Count 220 thou/uL (130-400); RBC Distribution Width 11.8 % (11.5-14.5); Red Blood Cell (RBC) Count 2.73 mill/uL (4.20-5.40); White Blood Cell (WBC) Count 5.1 thou/uL (4.8-10.8)
[2020-05-31 05:06] LABS: Anion Gap 16 mmol/L (10-20); BUN (Urea Nitrogen) 24 mg/dL (9.8-20.1); Calc. Creatinine Clearance 39 mL/min (70-130); Calcium 8.9 mg/dL (7.8-10.44); Carbon Dioxide 16 mmol/L (23-31); Chloride 110 mmol/L (98-107); Glucose 71 mg/dL (83-110); Potassium 3.5 mmol/L (3.5-5.1); Sodium 138 mmol/L (136-145)
[2020-05-31] MEDS: Levothyroxine Sodium 25 MCG TAB PO SCH (05:54)
[2020-05-31] MEDS ORDERED: Aspirin Chewable 81 MG TAB PO SCH (06:30)
[2020-05-31 07:30] LABS: CKMB 10.9 ng/mL (0-6.6)
[2020-05-31] MEDS: Gabapentin 300 MG CAP PO SCH (08:17)
[2020-05-31] MEDS: Lisinopril 20 MG TAB PO SCH (08:17)
[2020-05-31] MEDS: hydrALAZINE 25 MG TAB PO SCH ×2 (08:18→21:53)
[2020-05-31] MEDS: Atorvastatin Calcium 10 MG TAB PO SCH (08:18)
[2020-05-31] MEDS: levETIRAcetam 500 MG TAB PO SCH ×2 (08:18→21:54)
[2020-05-31] MEDS: Loratadine 10 MG TAB PO SCH (08:18)
[2020-05-31] MEDS: Aspirin 81 mg Enteric Coated Tablet PO SCH (08:18)
[2020-05-31] MEDS: Amlodipine 10 MG TAB PO SCH (08:18)
[2020-05-31] MEDS: Enoxaparin Sodium 40 MG/0.4 ML SYRINGE SC SCH (08:19)
[2020-05-31] MEDS ORDERED: Enoxaparin Sodium 40 MG/0.4 ML SYRINGE SC SCH (09:00)
[2020-05-31] MEDS ORDERED: Nitroglycerin 0.4 MG TAB (25 Tab Bottle) SL PRN (10:16)
[2020-05-31 11:10] LABS: CKMB 8.8 ng/mL (0-6.6)
[2020-05-31 14:07] LABS: Critical Call Chem Troponin I RESULT DECREASING
[2020-05-31] MEDS: Acetaminophen/Codeine 30-300mg Tablet PO SCH ×2 (14:11→21:54)
[2020-05-31 14:31] LABS: CKMB 8.2 ng/mL (0-6.6); Critical Call CKMB RESULT DECREASING
[2020-05-31] MEDS ORDERED: Non-Formulary Item 1 EACH (Acetaminophen With Codeine [Acetaminophen/Codeine #4] 300 MG/6 PO SCH (15:00)
[2020-05-31] MEDS ORDERED: Lactated Ringer's 1,000 ML IV SCH (16:15)
[2020-05-31] MEDS: Acetaminophen 325 MG TAB PO PRN (19:26)
[2020-05-31] MEDS: Enoxaparin Sodium 60 MG/0.6 ML SYRINGE SC SCH (21:54)
[2020-06-01] MEDS: Acetaminophen 325 MG TAB PO PRN (02:51)
[2020-06-01] MEDS ORDERED: Fluticasone Propionate Nasal Spray 16 gm Bottle NASAL PRN (03:07)
[2020-06-01 05:12] LABS: #Eosinphils 0.3 thou/uL (0.0-0.7); #Lymphocytes 1.1 thou/uL (1.20-3.40); #Monocytes 0.7 thou/uL (0.11-0.59); #Neutrophils 3.1 thou/uL (1.40-6.50); %Basophils 0.7 % (0.0-1.0); %Eosinophils 6.5 % (0.0-10.0); %Lymphocytes 21.2 % (21.0-51.0); %Monocytes 12.9 % (0.0-10.0); %Neutrophils 58.7 % (42.0-75.0); Hemoglobin 8.3 g/dL (12.0-16.0); Mean Corpuscular HGB CONC 33.3 g/dL (32.0-36.0); Mean Corpuscular Hemoglobin 32.9 pg (27.0-31.0); Mean Corpuscular Volume 98.7 fL (78.0-98.0); Mean Platelet Volume 7.4 fL (7.4-10.4); Platelet Count 175 thou/uL (130-400); RBC Distribution Width 11.8 % (11.5-14.5); Red Blood Cell (RBC) Count 2.51 mill/uL (4.20-5.40); White Blood Cell (WBC) Count 5.4 thou/uL (4.8-10.8)
[2020-06-01 05:19] LABS: Anion Gap 11 mmol/L (10-20); BUN (Urea Nitrogen) 21 mg/dL (9.8-20.1); Calc. Creatinine Clearance 42 mL/min (70-130); Calcium 8.2 mg/dL (7.8-10.44); Carbon Dioxide 17 mmol/L (23-31); Cardiac Risk 3.4 (Less than 4.5); Chloride 111 mmol/L (98-107); Cholesterol 142 mg/dl (< 200 Desired); Glucose 88 mg/dL (83-110); HDL Cholesterol 42 mg/dL (>60 Neg Risk); LDL Cholesterol, Calculated 76 mg/dL; Potassium 3.3 mmol/L (3.5-5.1); Sodium 136 mmol/L (136-145); Triglycerides 118 mg/dL (Less than 150)
[2020-06-01] MEDS: Levothyroxine Sodium 25 MCG TAB PO SCH (06:24)
[2020-06-01] MEDS ORDERED: Potassium Chloride 20 MEQ TAB PO SCH (08:30)
[2020-06-01] MEDS: Gabapentin 300 MG CAP PO SCH (09:09)
[2020-06-01] MEDS: Aspirin 81 mg Enteric Coated Tablet PO SCH (09:09)
[2020-06-01] MEDS: Acetaminophen/Codeine 30-300mg Tablet PO SCH ×3 (09:10→20:56)
[2020-06-01] MEDS: Loratadine 10 MG TAB PO SCH (09:11)
[2020-06-01] MEDS: hydrALAZINE 25 MG TAB PO SCH ×2 (09:11→20:56)
[2020-06-01] MEDS: levETIRAcetam 500 MG TAB PO SCH ×2 (09:12→20:56)
[2020-06-01] MEDS: Amlodipine 10 MG TAB PO SCH (09:12)
[2020-06-01] MEDS: Lisinopril 20 MG TAB PO SCH (09:12)
[2020-06-01] MEDS: Atorvastatin Calcium 10 MG TAB PO SCH (09:13)
[2020-06-01] MEDS: Enoxaparin Sodium 60 MG/0.6 ML SYRINGE SC SCH ×2 (09:13→20:55)
[2020-06-01] MEDS: Lactated Ringer's 1,000 ML IV SCH (10:30)
[2020-06-01] MEDS: Atorvastatin Calcium 40 MG TAB PO SCH (20:56)
[2020-06-01] MEDS: Cyproheptadine 4 MG TAB PO SCH (20:56)
[2020-06-02 04:32] LABS: #Basophils 0.1 thou/uL (0.0-0.2); #Eosinphils 0.5 thou/uL (0.0-0.7); #Lymphocytes 1.7 thou/uL (1.20-3.40); #Monocytes 0.7 thou/uL (0.11-0.59); #Neutrophils 2.4 thou/uL (1.40-6.50); %Basophils 1.5 % (0.0-1.0); %Lymphocytes 31.5 % (21.0-51.0); %Monocytes 12.4 % (0.0-10.0); %Neutrophils 45.5 % (42.0-75.0); Hemoglobin 9.2 g/dL (12.0-16.0); Mean Corpuscular HGB CONC 33.4 g/dL (32.0-36.0); Mean Corpuscular Hemoglobin 32.6 pg (27.0-31.0); Mean Corpuscular Volume 97.6 fL (78.0-98.0); Platelet Count 250 thou/uL (130-400); RBC Distribution Width 11.7 % (11.5-14.5); Red Blood Cell (RBC) Count 2.83 mill/uL (4.20-5.40); White Blood Cell (WBC) Count 5.3 thou/uL (4.8-10.8)
[2020-06-02 04:52] LABS: Anion Gap 12 mmol/L (10-20); BUN (Urea Nitrogen) 16 mg/dL (9.8-20.1); Calc. Creatinine Clearance 44 mL/min (70-130); Calcium 8.7 mg/dL (7.8-10.44); Carbon Dioxide 21 mmol/L (23-31); Chloride 108 mmol/L (98-107); Glucose 91 mg/dL (83-110); Magnesium 1.4 mg/dL (1.6-2.6); Sodium 137 mmol/L (136-145)
[2020-06-02] MEDS: Levothyroxine Sodium 25 MCG TAB PO SCH (05:21)
[2020-06-02] MEDS: Acetaminophen 325 MG TAB PO PRN (05:24)
[2020-06-02] MEDS: Lactated Ringer's 1,000 ML IV SCH (05:27)
[2020-06-02] MEDS: Gabapentin 300 MG CAP PO SCH (10:56)
[2020-06-02] MEDS: hydrALAZINE 25 MG TAB PO SCH ×2 (10:56→20:27)
[2020-06-02] MEDS: levETIRAcetam 500 MG TAB PO SCH ×2 (10:56→20:26)
[2020-06-02] MEDS: Amlodipine 10 MG TAB PO SCH (10:57)
[2020-06-02] MEDS: Cyproheptadine 4 MG TAB PO SCH ×2 (10:57→20:27)
[2020-06-02] MEDS: Aspirin 81 mg Enteric Coated Tablet PO SCH (10:57)
[2020-06-02] MEDS: Lisinopril 20 MG TAB PO SCH (10:57)
[2020-06-02] MEDS: Acetaminophen/Codeine 30-300mg Tablet PO SCH ×3 (10:57→20:25)
[2020-06-02] MEDS: Loratadine 10 MG TAB PO SCH (11:00)
[2020-06-02 15:09] VITALS: BMI 25.3
[2020-06-02] MEDS: Atorvastatin Calcium 40 MG TAB PO SCH (20:26)
[2020-06-03] MEDS: Acetaminophen 325 MG TAB PO PRN (03:19)
[2020-06-03 04:45] LABS: #Basophils 0.1 thou/uL (0.0-0.2); #Eosinphils 0.5 thou/uL (0.0-0.7); #Lymphocytes 1.1 thou/uL (1.20-3.40); #Monocytes 0.5 thou/uL (0.11-0.59); #Neutrophils 2.1 thou/uL (1.40-6.50); %Basophils 1.3 % (0.0-1.0); %Eosinophils 12.5 % (0.0-10.0); %Lymphocytes 24.9 % (21.0-51.0); %Monocytes 11.3 % (0.0-10.0); Hemoglobin 8.9 g/dL (12.0-16.0); Mean Corpuscular HGB CONC 33.8 g/dL (32.0-36.0); Mean Corpuscular Hemoglobin 33.1 pg (27.0-31.0); Mean Corpuscular Volume 97.9 fL (78.0-98.0); Mean Platelet Volume 6.8 fL (7.4-10.4); Platelet Count 226 thou/uL (130-400); RBC Distribution Width 11.8 % (11.5-14.5); Red Blood Cell (RBC) Count 2.69 mill/uL (4.20-5.40); White Blood Cell (WBC) Count 4.3 thou/uL (4.8-10.8)
[2020-06-03 05:14] LABS: Anion Gap 11 mmol/L (10-20); BUN (Urea Nitrogen) 14 mg/dL (9.8-20.1); Calc. Creatinine Clearance 49 mL/min (70-130); Calcium 8.4 mg/dL (7.8-10.44); Carbon Dioxide 23 mmol/L (23-31); Chloride 107 mmol/L (98-107); Glucose 95 mg/dL (83-110); Potassium 3.7 mmol/L (3.5-5.1); Sodium 137 mmol/L (136-145)
[2020-06-03] MEDS: Levothyroxine Sodium 25 MCG TAB PO SCH (05:35)
[2020-06-03] MEDS: Gabapentin 300 MG CAP PO SCH (09:31)
[2020-06-03] MEDS: Acetaminophen/Codeine 30-300mg Tablet PO SCH ×2 (09:33→14:30)
[2020-06-03] MEDS: hydrALAZINE 25 MG TAB PO SCH (09:33)
[2020-06-03] MEDS: Amlodipine 10 MG TAB PO SCH (09:34)
[2020-06-03] MEDS: Cyproheptadine 4 MG TAB PO SCH (09:35)
[2020-06-03] MEDS: Lisinopril 20 MG TAB PO SCH (09:35)
[2020-06-03] MEDS: levETIRAcetam 500 MG TAB PO SCH (09:35)
[2020-06-03] MEDS: Aspirin 81 mg Enteric Coated Tablet PO SCH (09:35)
[2020-06-03] MEDS: Loratadine 10 MG TAB PO SCH (09:35)
[2020-06-03] MEDS ORDERED: Polyethylene Glycol 3350 17 GM Packet PO PRN (10:26)
[2020-06-03 16:02] VITALS: BP 143/63; TEMP 97.4
[2020-06-04] MEDS ORDERED: Clopidogrel Bisulfate 75 MG TAB PO SCH (09:00)
== END 2020-06-03 17:20 | disposition home or self-care (01) | DRG 640 ==
LOC: ERS 20:25 → 2NO 23:07 → OBSVTOIN 05-29 14:28
PROVIDERS: ADMIT Student in an Organized Health Care Education/Training Program; ATTEND Internal Medicine
DX: E87.1 Hypo-osmolality and hyponatremia (principal); I21.4 Non-ST elevation (NSTEMI) myocardial infarction; G92 Toxic encephalopathy; E87.2 Acidosis; Z20.822 Contact with and (suspected) exposure to COVID-19; Z66 Do not resuscitate; G40.909 Epilepsy, unspecified, not intractable, without status epilepticus; I25.10 Atherosclerotic heart disease of native coronary artery without angina pectoris; I10 Essential (primary) hypertension; E03.9 Hypothyroidism, unspecified; F32.9 Major depressive disorder, single episode, unspecified; E87.6 Hypokalemia; Z53.20 Procedure and treatment not carried out because of patient's decision for unspecified reasons; Z95.1 Presence of aortocoronary bypass graft; Z28.21 Immunization not carried out because of patient refusal; Z86.73 Personal history of transient ischemic attack (TIA), and cerebral infarction without residual deficits; Z90.49 Acquired absence of other specified parts of digestive tract; Z79.899 Other long term (current) drug therapy; Z79.82 Long term (current) use of aspirin; Z79.890 Hormone replacement therapy; Z95.5 Presence of coronary angioplasty implant and graft
CPT/HCPCS: 36415; 36416; 51701; 70450; 70496; 70498; 70551; 71045; 80048; 80053; 80061; 80185; 80306; 81003; 82140; 82553; 82607; 83605; 83735; 83935; 84484; 85025; 87635; 93005; 93010; 93306; 95712; 95816; 95819; 95957; 96374; 96375; G0378; J1650; J1953; J2405; Q9967; U0003; U0005

== ENCOUNTER 2020-10-06 21:59 | Inpatient (IN) | payer MEDICARE, OTHER ==
[2020-10-06 23:20] LABS: Anion Gap 13 mmol/L (10-20); BUN (Urea Nitrogen) 48 mg/dL (9.8-20.1); Calc. Creatinine Clearance 0 mL/min (70-130); Carbon Dioxide 16 mmol/L (23-31); Chloride 107 mmol/L (98-107); Glucose 147 mg/dL (83-110); Potassium 5.4 mmol/L (3.5-5.1); Sodium 131 mmol/L (136-145)
[2020-10-06] MEDS ORDERED: Vancomycin 1 GM/200 ML BAG ONE (23:24)
[2020-10-06] MEDS ORDERED: Cefepime 2 GM VIAL ONE (23:24)
[2020-10-07] MEDS ORDERED: Ondansetron PF 4 MG/2 ML Vial IVP PRN (01:00)
[2020-10-07] MEDS ORDERED: Ondansetron ODT 4 MG TAB SL PRN (01:00)
[2020-10-07] MEDS ORDERED: Sodium Chloride 0.9% 1,000 ML IV SCH ×4 (01:00→10:15)
[2020-10-07] MEDS ORDERED: Sodium Chloride 0.9% 250 ML IV SCH (01:45)
[2020-10-07] MEDS ORDERED: Cefepime 2 GM in Sodium Chloride 0.9% 100 ML IVPB SCH ×2 (02:00→08:00)
[2020-10-07 02:40] LABS: SARS-CoV-2 NAA Rapid Test Not Detected (NotDetected)
[2020-10-07] MEDS ORDERED: Dextrose 5% in Water 1,000 ML IV PRN (03:10)
[2020-10-07] MEDS ORDERED: Dextrose 50% Abboject 50 ML SYRINGE SLOW IVP PRN (03:10)
[2020-10-07] MEDS ORDERED: HumaLOG 300 UNITS/3 ML VIAL SC PRN (03:10)
[2020-10-07 03:48] LABS: #Lymphocytes 0.5 thou/uL (1.20-3.40); #Monocytes 0.9 thou/uL (0.11-0.59); #Neutrophils 12.1 thou/uL (1.40-6.50); %Basophils 0.2 % (0.0-1.0); %Eosinophils 0.1 % (0.0-10.0); %Lymphocytes 3.9 % (21.0-51.0); %Monocytes 6.9 % (0.0-10.0); %Neutrophils 88.9 % (42.0-75.0); Hemoglobin 8.5 g/dL (12.0-16.0); Mean Corpuscular HGB CONC 33.4 g/dL (32.0-36.0); Mean Corpuscular Hemoglobin 34.9 pg (27.0-31.0); Mean Platelet Volume 7.7 fL (7.4-10.4); Platelet Count 175 thou/uL (130-400); Red Blood Cell (RBC) Count 2.43 mill/uL (4.20-5.40); White Blood Cell (WBC) Count 13.6 thou/uL (4.8-10.8)
[2020-10-07 04:07] LABS: Anion Gap 12 mmol/L (10-20); BUN (Urea Nitrogen) 48 mg/dL (9.8-20.1); Calc. Creatinine Clearance 25 mL/min (70-130); Calcium 8.7 mg/dL (7.8-10.44); Carbon Dioxide 15 mmol/L (23-31); Chloride 108 mmol/L (98-107); Glucose 136 mg/dL (83-110); Potassium 5.6 mmol/L (3.5-5.1); Sodium 129 mmol/L (136-145)
[2020-10-07] MEDS ORDERED: Norepinephrine 8 MG/0.9% NS 250 ML IVPB SCH (06:15)
[2020-10-07] MEDS ORDERED: Levothyroxine Sodium 25 MCG TAB PO SCH (07:00)
[2020-10-07 07:05] LABS: Amphetamine Not Detected (NotDetected); Barbiturates Screen Not Detected (NotDetected); Benzodiazepine Screen Not Detected (NotDetected); Cocaine Metabolite Screen Not Detected (NotDetected); Medtox Control Line Valid? VALID (VALID); Medtox Reader # READER 1; Methadone Not Detected (NotDetected); Methamphetamine Not Detected (NotDetected); Opiate Screen Detected (NotDetected); Oxycodone Screen Not Detected (NotDetected); Phencyclidine (PCP) Not Detected (NotDetected); THC/Cannabinoid Screen Not Detected (NotDetected); Tricyclic Screen Not Detected (NotDetected)
[2020-10-07] MEDS: Sodium Bicarb 50 MEQ/50 ML Abboject 8.4% SYRINGE IVP SCH (07:10)
[2020-10-07] MEDS ORDERED: Naloxone HCl 0.4 mg/ml Vial ONE ×2 (07:14→13:00)
[2020-10-07 08:19] LABS: Anion Gap 17 mmol/L (10-20); BUN (Urea Nitrogen) 48 mg/dL (9.8-20.1); Calc. Creatinine Clearance 23 mL/min (70-130); Calcium 8.7 mg/dL (7.8-10.44); Carbon Dioxide 16 mmol/L (23-31); Chloride 109 mmol/L (98-107); Glucose 123 mg/dL (83-110); Potassium 4.9 mmol/L (3.5-5.1); Sodium 137 mmol/L (136-145)
[2020-10-07] MEDS ORDERED: Famotidine 20 MG TAB PO SCH (09:00)
[2020-10-07] MEDS ORDERED: Vancomycin 1 GM in Premix Bag 1 BAG IVPB SCH (09:00)
[2020-10-07] MEDS: levETIRAcetam 500 MG TAB PO SCH ×2 (13:08→23:59)
[2020-10-07] MEDS: Aspirin 81 mg Enteric Coated Tablet PO SCH (13:08)
[2020-10-07] MEDS: Sodium Chloride 0.9% 1,000 ML IV SCH (13:10)
[2020-10-07] MEDS ORDERED: Naloxone HCl 0.4 mg/ml Vial IVP SCH (13:15)
[2020-10-07] MEDS ORDERED: Naloxone HCl 2 MG in Sodium Chloride 0.9% 500 ML IV SCH (16:15)
[2020-10-07] MEDS: Naloxone HCl 2 MG, Admixture Fee 1 EACH in Sodium Chloride 0.9% 500 ML IV PRN ×2 (17:18→21:17)
[2020-10-07] MEDS ORDERED: Vancomycin HCl 500 MG in Sodium Chloride 0.9% 100 ML IVPB SCH (23:59)
[2020-10-08] MEDS: Naloxone HCl 2 MG, Admixture Fee 1 EACH in Sodium Chloride 0.9% 500 ML IV PRN (01:30)
[2020-10-08] MEDS: Sodium Chloride 0.9% 1,000 ML IV SCH (02:40)
[2020-10-08] MEDS: Cefepime 1 GM in Sodium Chloride 0.9% 100 ML IVPB SCH (02:48)
[2020-10-08] MEDS: Acetaminophen 325 MG TAB PO PRN ×3 (02:51→21:22)
[2020-10-08 03:57] LABS: #Lymphocytes 0.5 thou/uL (1.20-3.40); #Monocytes 0.5 thou/uL (0.11-0.59); #Neutrophils 7.6 thou/uL (1.40-6.50); %Basophils 0.3 % (0.0-1.0); %Eosinophils 0.5 % (0.0-10.0); %Lymphocytes 5.6 % (21.0-51.0); %Monocytes 5.9 % (0.0-10.0); %Neutrophils 87.7 % (42.0-75.0); Hemoglobin 8.5 g/dL (12.0-16.0); Mean Corpuscular HGB CONC 32.9 g/dL (32.0-36.0); Mean Corpuscular Hemoglobin 33.6 pg (27.0-31.0); Mean Platelet Volume 7.6 fL (7.4-10.4); Platelet Count 194 thou/uL (130-400); Red Blood Cell (RBC) Count 2.52 mill/uL (4.20-5.40); White Blood Cell (WBC) Count 8.7 thou/uL (4.8-10.8)
[2020-10-08 04:14] LABS: Anion Gap 15 mmol/L (10-20); BUN (Urea Nitrogen) 40 mg/dL (9.8-20.1); Calc. Creatinine Clearance 28 mL/min (70-130); Calcium 8.3 mg/dL (7.8-10.44); Carbon Dioxide 12 mmol/L (23-31); Chloride 115 mmol/L (98-107); Glucose 138 mg/dL (83-110); Potassium 4.7 mmol/L (3.5-5.1); Sodium 137 mmol/L (136-145)
[2020-10-08] MEDS: Levothyroxine Sodium 25 MCG TAB PO SCH (06:25)
[2020-10-08] MEDS ORDERED: Sodium Bicarbonate 150 MEQ in Dextrose 5% in Water 1,000 ML IV SCH (07:45)
[2020-10-08] MEDS: Aspirin 81 mg Enteric Coated Tablet PO SCH (08:27)
[2020-10-08] MEDS: levETIRAcetam 500 MG TAB PO SCH ×2 (08:27→20:28)
[2020-10-08 10:22] LABS: Potassium, Urine 38.4 mmol/L
[2020-10-08] MEDS ORDERED: Furosemide 20 MG/2 ML VIAL SLOW IVP SCH ×2 (15:45→20:30)
[2020-10-08 21:36] LABS: Creatinine, Urine 34.69 mg/dL (47-110); Protein, Urine Random Quant Less than 10 mg/dL (1-14)
[2020-10-08] MEDS: hydrALAZINE 20 MG/ML VIAL SLOW IVP PRN (22:11)
[2020-10-09] MEDS: Cefepime 1 GM in Sodium Chloride 0.9% 100 ML IVPB SCH (01:21)
[2020-10-09] MEDS: Naloxone HCl 2 MG, Admixture Fee 1 EACH in Sodium Chloride 0.9% 500 ML IV PRN (02:32)
[2020-10-09 04:05] LABS: #Lymphocytes 0.8 thou/uL (1.20-3.40); #Monocytes 0.7 thou/uL (0.11-0.59); #Neutrophils 13.3 thou/uL (1.40-6.50); %Basophils 0.1 % (0.0-1.0); %Lymphocytes 5.1 % (21.0-51.0); %Monocytes 4.5 % (0.0-10.0); %Neutrophils 90.3 % (42.0-75.0); Hemoglobin 9.1 g/dL (12.0-16.0); Mean Corpuscular HGB CONC 33.6 g/dL (32.0-36.0); Mean Corpuscular Hemoglobin 33.6 pg (27.0-31.0); Mean Platelet Volume 7.6 fL (7.4-10.4); Platelet Count 286 thou/uL (130-400); White Blood Cell (WBC) Count 14.8 thou/uL (4.8-10.8)
[2020-10-09] MEDS: hydrALAZINE 20 MG/ML VIAL SLOW IVP PRN (04:26)
[2020-10-09 04:46] LABS: Anion Gap 17 mmol/L (10-20); BUN (Urea Nitrogen) 39 mg/dL (9.8-20.1); Calc. Creatinine Clearance 33 mL/min (70-130); Calcium 8.8 mg/dL (7.8-10.44); Carbon Dioxide 13 mmol/L (23-31); Chloride 110 mmol/L (98-107); Glucose 146 mg/dL (83-110); Potassium 3.5 mmol/L (3.5-5.1); Sodium 136 mmol/L (136-145)
[2020-10-09] MEDS: Levothyroxine Sodium 25 MCG TAB PO SCH (05:46)
[2020-10-09] MEDS: HumaLOG 300 UNITS/3 ML VIAL SC PRN (05:46)
[2020-10-09] MEDS: Aspirin 81 mg Enteric Coated Tablet PO SCH (09:10)
[2020-10-09] MEDS: levETIRAcetam 500 MG TAB PO SCH ×2 (09:12→20:05)
[2020-10-09] MEDS: Sodium Bicarbonate Tab 325 MG TAB PO SCH ×3 (09:12→20:04)
[2020-10-09] MEDS: Dextrose 5 %-0.45 % NaCl 1,000 ML IV SCH (12:00)
[2020-10-09 12:08] LABS: ANA Symphony (Qualitative) Negative (Negative); ANA Symphony (Quantitative) 0.1 Ratio (< 0.7 Negative); dsDNA IgG Antibody Less than 0.5 IU/mL (<10 Negative)
[2020-10-09] MEDS: Clindamycin/D5W 600 MG in Premix Bag 1 BAG IVPB SCH ×2 (12:10→20:07)
[2020-10-09] MEDS: methylPREDNISolone Sod Succ 40 MG VIAL IVP SCH ×3 (12:13→23:11)
[2020-10-09] MEDS ORDERED: Furosemide 40 MG/4 ML VIAL IVP SCH (14:15)
[2020-10-09] MEDS ORDERED: D5 1/2 NS w/20 mEq KCL 1,000 ML IV SCH (14:45)
[2020-10-09] MEDS ORDERED: Furosemide 20 MG/2 ML VIAL SLOW IVP SCH (16:30)
[2020-10-09] MEDS ORDERED: Amlodipine 10 MG TAB PO SCH (18:15)
[2020-10-09] MEDS: Melatonin 3 MG TAB PO SCH (20:07)
[2020-10-09 21:04] LABS: Anion Gap 16 mmol/L (10-20); BUN (Urea Nitrogen) 40 mg/dL (9.8-20.1); Calc. Creatinine Clearance 30 mL/min (70-130); Calcium 9.1 mg/dL (7.8-10.44); Carbon Dioxide 16 mmol/L (23-31); Chloride 107 mmol/L (98-107); Glucose 176 mg/dL (83-110); Magnesium 1.7 mg/dL (1.6-2.6); Potassium 3.1 mmol/L (3.5-5.1); Sodium 136 mmol/L (136-145)
[2020-10-09] MEDS ORDERED: Potassium Chloride 20 MEQ in Premix Bag 1 BAG IVPB SCH (21:30)
[2020-10-09] MEDS ORDERED: Potassium Chloride 20 MEQ TAB PO SCH (21:30)
[2020-10-09] MEDS ORDERED: Magnesium 2 GM/50 ML 2 GM in Premix Bag 1 BAG IVPB SCH (21:45)
[2020-10-10] MEDS: Cefepime 1 GM in Sodium Chloride 0.9% 100 ML IVPB SCH (01:23)
[2020-10-10] MEDS: Clindamycin/D5W 600 MG in Premix Bag 1 BAG IVPB SCH ×3 (03:10→20:17)
[2020-10-10 03:31] LABS: #Basophils 0.1 thou/uL (0.0-0.2); #Lymphocytes 0.5 thou/uL (1.20-3.40); #Monocytes 0.2 thou/uL (0.11-0.59); #Neutrophils 4.6 thou/uL (1.40-6.50); %Basophils 1.2 % (0.0-1.0); %Eosinophils 0.6 % (0.0-10.0); %Lymphocytes 9.5 % (21.0-51.0); %Monocytes 3.1 % (0.0-10.0); %Neutrophils 85.7 % (42.0-75.0); Hemoglobin 8.3 g/dL (12.0-16.0); Mean Corpuscular HGB CONC 33.9 g/dL (32.0-36.0); Mean Corpuscular Hemoglobin 33.6 pg (27.0-31.0); Mean Corpuscular Volume 99.1 fL (78.0-98.0); Mean Platelet Volume 7.5 fL (7.4-10.4); Platelet Count 260 thou/uL (130-400); RBC Distribution Width 11.9 % (11.5-14.5); Red Blood Cell (RBC) Count 2.48 mill/uL (4.20-5.40); White Blood Cell (WBC) Count 5.4 thou/uL (4.8-10.8)
[2020-10-10 03:43] LABS: Anion Gap 14 mmol/L (10-20); BUN (Urea Nitrogen) 41 mg/dL (9.8-20.1); Calc. Creatinine Clearance 31 mL/min (70-130); Calcium 8.9 mg/dL (7.8-10.44); Carbon Dioxide 17 mmol/L (23-31); Chloride 106 mmol/L (98-107); Glucose 175 mg/dL (83-110); Magnesium 2.3 mg/dL (1.6-2.6); Potassium 3.6 mmol/L (3.5-5.1); Sodium 133 mmol/L (136-145)
[2020-10-10] MEDS: Levothyroxine Sodium 25 MCG TAB PO SCH (05:07)
[2020-10-10] MEDS: methylPREDNISolone Sod Succ 40 MG VIAL IVP SCH ×3 (05:07→18:05)
[2020-10-10] MEDS: Furosemide 20 MG/2 ML VIAL SLOW IVP SCH ×2 (05:07→14:48)
[2020-10-10] MEDS: Acetaminophen 325 MG TAB PO PRN ×2 (07:38→19:39)
[2020-10-10] MEDS ORDERED: Milk Of Magnesia 30 ML UDCUP PO PRN (08:49)
[2020-10-10] MEDS: Sodium Bicarbonate Tab 325 MG TAB PO SCH ×3 (08:50→20:21)
[2020-10-10] MEDS: Aspirin 81 mg Enteric Coated Tablet PO SCH (08:50)
[2020-10-10] MEDS: Cholecalciferol 1,000 UNITS (25 MCG) TAB PO SCH (08:51)
[2020-10-10] MEDS: Gabapentin 400 MG CAP PO SCH (08:51)
[2020-10-10] MEDS: Amlodipine 10 MG TAB PO SCH (08:51)
[2020-10-10] MEDS: levETIRAcetam 500 MG TAB PO SCH ×2 (08:52→20:21)
[2020-10-10] MEDS: Loratadine 10 MG TAB PO SCH (08:52)
[2020-10-10] MEDS: Clopidogrel Bisulfate 75 MG TAB PO SCH (08:52)
[2020-10-10] MEDS ORDERED: Furosemide 40 MG/4 ML VIAL IVP SCH (09:00)
[2020-10-10] MEDS: Ondansetron PF 4 MG/2 ML Vial IVP PRN (09:10)
[2020-10-10] MEDS: HumaLOG 300 UNITS/3 ML VIAL SC PRN (11:33)
[2020-10-10] MEDS: Dextrose 5 %-0.45 % NaCl 1,000 ML IV SCH (14:47)
[2020-10-10] MEDS: Melatonin 3 MG TAB PO SCH (20:21)
[2020-10-11] MEDS: methylPREDNISolone Sod Succ 40 MG VIAL IVP SCH ×4 (00:37→17:06)
[2020-10-11] MEDS: Acetaminophen 325 MG TAB PO PRN ×2 (00:46→14:42)
[2020-10-11] MEDS: Cefepime 1 GM in Sodium Chloride 0.9% 100 ML IVPB SCH (02:02)
[2020-10-11] MEDS: Clindamycin/D5W 600 MG in Premix Bag 1 BAG IVPB SCH ×3 (04:25→19:29)
[2020-10-11] MEDS: Levothyroxine Sodium 25 MCG TAB PO SCH (05:57)
[2020-10-11] MEDS: Furosemide 20 MG/2 ML VIAL SLOW IVP SCH ×2 (05:57→14:16)
[2020-10-11 06:38] LABS: Anion Gap 14 mmol/L (10-20); BUN (Urea Nitrogen) 46 mg/dL (9.8-20.1); Calc. Creatinine Clearance 29 mL/min (70-130); Calcium 9.3 mg/dL (7.8-10.44); Carbon Dioxide 21 mmol/L (23-31); Chloride 102 mmol/L (98-107); Glucose 172 mg/dL (83-110); Iron 11 ug/dL (50-170); Iron Binding Capacity, Total 261 mcg/dL (265-497); Magnesium 2.3 mg/dL (1.6-2.6); Sodium 134 mmol/L (136-145)
[2020-10-11 06:42] LABS: Potassium 2.9 mmol/L (3.5-5.1)
[2020-10-11] MEDS: Sodium Bicarbonate Tab 325 MG TAB PO SCH ×3 (08:16→19:33)
[2020-10-11] MEDS: levETIRAcetam 500 MG TAB PO SCH ×2 (08:16→19:33)
[2020-10-11] MEDS: Aspirin 81 mg Enteric Coated Tablet PO SCH (08:16)
[2020-10-11] MEDS: Clopidogrel Bisulfate 75 MG TAB PO SCH (08:16)
[2020-10-11] MEDS: Gabapentin 400 MG CAP PO SCH (08:16)
[2020-10-11] MEDS: Cholecalciferol 1,000 UNITS (25 MCG) TAB PO SCH (08:17)
[2020-10-11] MEDS: Amlodipine 10 MG TAB PO SCH (08:18)
[2020-10-11] MEDS: Loratadine 10 MG TAB PO SCH (08:18)
[2020-10-11] MEDS: Dextrose 5 %-0.45 % NaCl 1,000 ML IV SCH (08:21)
[2020-10-11] MEDS ORDERED: Electrolyte Replacement Protocol 1 EACH FS SCH (13:15)
[2020-10-11] MEDS ORDERED: Dextrose 5 %-0.45 % NaCl 1,000 ML IV SCH (14:29)
[2020-10-11] MEDS ORDERED: Potassium Chloride 20 MEQ TAB PO SCH (17:00)
[2020-10-11] MEDS: Carvedilol 3.125 MG TAB PO SCH (17:02)
[2020-10-11 18:34] LABS: Potassium 2.6 mmol/L (3.5-5.1)
[2020-10-11] MEDS ORDERED: Lidocaine 5% Patch TD SCH (19:30)
[2020-10-11] MEDS: Famotidine 20 MG TAB PO SCH (19:33)
[2020-10-11] MEDS: Melatonin 3 MG TAB PO SCH (19:33)
[2020-10-11] MEDS: Heparin 5,000 UNITS/ML VIAL SC SCH (19:34)
[2020-10-11] MEDS: Iron, Sodium Ferric Gluconate 250 MG in Sodium Chloride 0.9% 250 ML 250 ML IVPB SCH (22:52)
[2020-10-12] MEDS: methylPREDNISolone Sod Succ 40 MG VIAL IVP SCH ×4 (00:17→16:58)
[2020-10-12] MEDS: Acetaminophen 325 MG TAB PO PRN ×2 (00:56→05:57)
[2020-10-12] MEDS: Cefepime 1 GM in Sodium Chloride 0.9% 100 ML IVPB SCH (00:58)
[2020-10-12] MEDS: Clindamycin/D5W 600 MG in Premix Bag 1 BAG IVPB SCH ×4 (03:17→23:56)
[2020-10-12] MEDS: Furosemide 20 MG/2 ML VIAL SLOW IVP SCH ×2 (05:21→14:10)
[2020-10-12] MEDS: Levothyroxine Sodium 25 MCG TAB PO SCH (05:22)
[2020-10-12 06:36] LABS: Anion Gap 14 mmol/L (10-20); BUN (Urea Nitrogen) 48 mg/dL (9.8-20.1); Calc. Creatinine Clearance 33 mL/min (70-130); Calcium 8.8 mg/dL (7.8-10.44); Carbon Dioxide 21 mmol/L (23-31); Chloride 98 mmol/L (98-107); Glucose 150 mg/dL (83-110); Sodium 130 mmol/L (136-145)
[2020-10-12 06:39] LABS: Potassium 2.8 mmol/L (3.5-5.1)
[2020-10-12] MEDS ORDERED: Magnesium 2 GM/50 ML 2 GM in Premix Bag 1 BAG IVPB SCH (07:15)
[2020-10-12 07:47] LABS: Anisocytosis SLIGHT = 6-15 cells (100X) (0-5/hpf); Band 1 % (5-11); Hemoglobin 8.7 g/dL (12.0-16.0); Lymphocytes 8 % (21-51); MDiff Complete? YES; Mean Corpuscular HGB CONC 34.7 g/dL (32.0-36.0); Mean Corpuscular Hemoglobin 34.1 pg (27.0-31.0); Mean Corpuscular Volume 98.4 fL (78.0-98.0); Mean Platelet Volume 7.2 fL (7.4-10.4); Monocytes 6 % (0-10); Neutrophil 85 % (42-75); Nucleated RBC 6 % (0); Platelet Count 369 thou/uL (130-400); Poikilocytosis SLIGHT = 6-15 cells (100X) (0-5/hpf); Polychromasia MODERATE = 3-4 cells (100X) (0-2/hpf); RBC Distribution Width 12.1 % (11.5-14.5); Red Blood Cell (RBC) Count 2.54 mill/uL (4.20-5.40); White Blood Cell (WBC) Count 10.8 thou/uL (4.8-10.8)
[2020-10-12] MEDS: Aspirin 81 mg Enteric Coated Tablet PO SCH (07:53)
[2020-10-12] MEDS: Cholecalciferol 1,000 UNITS (25 MCG) TAB PO SCH (07:54)
[2020-10-12] MEDS: Sodium Bicarbonate Tab 325 MG TAB PO SCH ×2 (07:54→21:25)
[2020-10-12] MEDS: levETIRAcetam 500 MG TAB PO SCH ×2 (07:54→21:25)
[2020-10-12] MEDS: Gabapentin 400 MG CAP PO SCH (07:55)
[2020-10-12] MEDS: Carvedilol 3.125 MG TAB PO SCH ×2 (07:55→16:57)
[2020-10-12] MEDS: Famotidine 20 MG TAB PO SCH ×2 (07:56→21:27)
[2020-10-12] MEDS: Heparin 5,000 UNITS/ML VIAL SC SCH ×2 (07:56→21:24)
[2020-10-12] MEDS: Potassium Chloride 20 MEQ TAB PO SCH ×2 (07:56→11:38)
[2020-10-12] MEDS: Clopidogrel Bisulfate 75 MG TAB PO SCH (07:56)
[2020-10-12] MEDS: Loratadine 10 MG TAB PO SCH (07:56)
[2020-10-12] MEDS: Iron, Sodium Ferric Gluconate 250 MG in Sodium Chloride 0.9% 250 ML 250 ML IVPB SCH (10:08)
[2020-10-12] MEDS ORDERED: Transdermal Patch Removal TOP SCH (19:30)
[2020-10-12] MEDS: Melatonin 3 MG TAB PO SCH (21:27)
[2020-10-13] MEDS: Clindamycin/D5W 600 MG in Premix Bag 1 BAG IVPB SCH ×2 (00:22→09:37)
[2020-10-13] MEDS: methylPREDNISolone Sod Succ 40 MG VIAL IVP SCH ×2 (00:22→06:12)
[2020-10-13] MEDS: Cefepime 1 GM in Sodium Chloride 0.9% 100 ML IVPB SCH (03:04)
[2020-10-13] MEDS: Furosemide 20 MG/2 ML VIAL SLOW IVP SCH ×2 (06:11→14:42)
[2020-10-13] MEDS: Levothyroxine Sodium 25 MCG TAB PO SCH (06:11)
[2020-10-13 06:39] LABS: Band 5 % (5-11); Hemoglobin 10.2 g/dL (12.0-16.0); Lymphocytes 3 % (21-51); MDiff Complete? YES; Mean Corpuscular HGB CONC 33.1 g/dL (32.0-36.0); Mean Corpuscular Hemoglobin 32.7 pg (27.0-31.0); Mean Corpuscular Volume 98.7 fL (78.0-98.0); Mean Platelet Volume 7.3 fL (7.4-10.4); Metamyelocyte 1 % (0-0); Monocytes 7 % (0-10); Myelocyte 1 % (0-0); Neutrophil 83 % (42-75); Nucleated RBC 18 % (0); Platelet Count 420 thou/uL (130-400); Polychromasia SLIGHT = 2-3 cells (100X) (0-2/hpf); RBC Distribution Width 12.5 % (11.5-14.5); Red Blood Cell (RBC) Count 3.12 mill/uL (4.20-5.40); White Blood Cell (WBC) Count 11.7 thou/uL (4.8-10.8)
[2020-10-13 06:54] LABS: Anion Gap 16 mmol/L (10-20); BUN (Urea Nitrogen) 54 mg/dL (9.8-20.1); Calc. Creatinine Clearance 30 mL/min (70-130); Calcium 8.5 mg/dL (7.8-10.44); Carbon Dioxide 21 mmol/L (23-31); Chloride 97 mmol/L (98-107); Glucose 142 mg/dL (83-110); Sodium 131 mmol/L (136-145)
[2020-10-13 07:02] LABS: Potassium 2.7 mmol/L (3.5-5.1)
[2020-10-13] MEDS ORDERED: Magnesium 2 GM/50 ML 2 GM in Premix Bag 1 BAG IVPB SCH (07:15)
[2020-10-13] MEDS: Sodium Bicarbonate Tab 325 MG TAB PO SCH ×2 (09:15→21:41)
[2020-10-13] MEDS: Potassium Chloride 20 MEQ TAB PO SCH ×2 (09:16→12:23)
[2020-10-13] MEDS: Clopidogrel Bisulfate 75 MG TAB PO SCH (09:16)
[2020-10-13] MEDS: Loratadine 10 MG TAB PO SCH (09:17)
[2020-10-13] MEDS: Aspirin 81 mg Enteric Coated Tablet PO SCH (09:17)
[2020-10-13] MEDS: Cholecalciferol 1,000 UNITS (25 MCG) TAB PO SCH (09:17)
[2020-10-13] MEDS: Gabapentin 400 MG CAP PO SCH (09:18)
[2020-10-13] MEDS: Acetaminophen 325 MG TAB PO PRN ×3 (09:19→23:29)
[2020-10-13] MEDS: Carvedilol 3.125 MG TAB PO SCH ×2 (09:19→16:56)
[2020-10-13] MEDS: Heparin 5,000 UNITS/ML VIAL SC SCH ×2 (09:19→21:41)
[2020-10-13] MEDS: levETIRAcetam 500 MG TAB PO SCH ×2 (09:19→21:42)
[2020-10-13] MEDS: Famotidine 20 MG TAB PO SCH ×2 (09:19→21:42)
[2020-10-13] MEDS ORDERED: Amoxicillin/Potassium Clav 500 MG TAB PO SCH (09:30)
[2020-10-13 16:29] LABS: Magnesium 2.3 mg/dL (1.6-2.6); Potassium 3.6 mmol/L (3.5-5.1)
[2020-10-13] MEDS: Mirtazapine 15 MG TAB PO SCH (21:42)
[2020-10-13] MEDS: Melatonin 3 MG TAB PO SCH (21:42)
[2020-10-13] MEDS: Amoxicillin/Potassium Clav 500 MG TAB PO SCH (21:59)
[2020-10-14 00:42] LABS: Magnesium 2.2 mg/dL (1.6-2.6); Potassium 3.3 mmol/L (3.5-5.1)
[2020-10-14] MEDS ORDERED: Gabapentin 400 MG CAP PO SCH (00:45)
[2020-10-14] MEDS ORDERED: Potassium Chloride 20 MEQ TAB PO SCH (01:15)
[2020-10-14 05:01] LABS: Anion Gap 11 mmol/L (10-20); BUN (Urea Nitrogen) 59 mg/dL (9.8-20.1); Calc. Creatinine Clearance 29 mL/min (70-130); Calcium 8.4 mg/dL (7.8-10.44); Carbon Dioxide 29 mmol/L (23-31); Chloride 95 mmol/L (98-107); Glucose 94 mg/dL (83-110); Potassium 3.3 mmol/L (3.5-5.1); Sodium 132 mmol/L (136-145)
[2020-10-14] MEDS ORDERED: Magnesium 2 GM/50 ML 2 GM in Premix Bag 1 BAG IVPB SCH (05:45)
[2020-10-14] MEDS: Levothyroxine Sodium 25 MCG TAB PO SCH (05:52)
[2020-10-14] MEDS: Furosemide 20 MG/2 ML VIAL SLOW IVP SCH ×2 (05:52→13:38)
[2020-10-14 06:30] LABS: Band 10 % (5-11); Hemoglobin 7.7 g/dL (12.0-16.0); Lymphocytes 10 % (21-51); MDiff Complete? YES; Mean Corpuscular HGB CONC 33.8 g/dL (32.0-36.0); Mean Corpuscular Hemoglobin 33.5 pg (27.0-31.0); Mean Corpuscular Volume 99.1 fL (78.0-98.0); Monocytes 4 % (0-10); Neutrophil 76 % (42-75); Nucleated RBC 2 % (0); Platelet Count 383 thou/uL (130-400); RBC Distribution Width 12.4 % (11.5-14.5); Red Blood Cell (RBC) Count 2.29 mill/uL (4.20-5.40); White Blood Cell (WBC) Count 13.9 thou/uL (4.8-10.8)
[2020-10-14] MEDS ORDERED: Acetaminophen/Codeine 30-300mg Tablet PO PRN ×2 (08:20→08:21)
[2020-10-14] MEDS: Loratadine 10 MG TAB PO SCH (08:44)
[2020-10-14] MEDS: predniSONE 20 MG TAB PO SCH (08:44)
[2020-10-14] MEDS: Sodium Bicarbonate Tab 325 MG TAB PO SCH (08:44)
[2020-10-14] MEDS: Clopidogrel Bisulfate 75 MG TAB PO SCH (08:44)
[2020-10-14] MEDS: Polyethylene Glycol 3350 17 GM Packet PO PRN (08:44)
[2020-10-14] MEDS: levETIRAcetam 500 MG TAB PO SCH ×2 (08:44→20:12)
[2020-10-14] MEDS: Cholecalciferol 1,000 UNITS (25 MCG) TAB PO SCH (08:45)
[2020-10-14] MEDS: Amoxicillin/Potassium Clav 500 MG TAB PO SCH ×2 (08:45→20:12)
[2020-10-14] MEDS: Aspirin 81 mg Enteric Coated Tablet PO SCH (08:45)
[2020-10-14] MEDS: Carvedilol 3.125 MG TAB PO SCH ×2 (08:45→17:26)
[2020-10-14] MEDS: Famotidine 20 MG TAB PO SCH (08:45)
[2020-10-14] MEDS: Heparin 5,000 UNITS/ML VIAL SC SCH ×2 (08:45→20:12)
[2020-10-14] MEDS: Spironolactone 25 MG TAB PO SCH (08:45)
[2020-10-14] MEDS: HumaLOG 300 UNITS/3 ML VIAL SC PRN (17:26)
[2020-10-14] MEDS: Melatonin 3 MG TAB PO SCH (20:11)
[2020-10-14] MEDS: Gabapentin 400 MG CAP PO SCH (20:11)
[2020-10-14] MEDS: Mirtazapine 15 MG TAB PO SCH (20:12)
[2020-10-14] MEDS: Ondansetron PF 4 MG/2 ML Vial IVP PRN (20:32)
[2020-10-15] MEDS ORDERED: Lidocaine 5% Patch TD SCH (00:15)
[2020-10-15] MEDS: Lidocaine 5% Patch TD SCH ×2 (00:16→20:42)
[2020-10-15] MEDS: Furosemide 20 MG/2 ML VIAL SLOW IVP SCH (05:24)
[2020-10-15] MEDS: Levothyroxine Sodium 25 MCG TAB PO SCH (05:24)
[2020-10-15] MEDS: Loratadine 10 MG TAB PO SCH (08:36)
[2020-10-15] MEDS: Carvedilol 3.125 MG TAB PO SCH (08:36)
[2020-10-15] MEDS: levETIRAcetam 500 MG TAB PO SCH ×2 (08:36→20:41)
[2020-10-15] MEDS: Aspirin 81 mg Enteric Coated Tablet PO SCH (08:37)
[2020-10-15] MEDS: Amoxicillin/Potassium Clav 500 MG TAB PO SCH ×2 (08:37→20:38)
[2020-10-15] MEDS: Heparin 5,000 UNITS/ML VIAL SC SCH ×2 (08:37→20:42)
[2020-10-15] MEDS: Spironolactone 25 MG TAB PO SCH (08:37)
[2020-10-15] MEDS: predniSONE 20 MG TAB PO SCH (08:37)
[2020-10-15] MEDS: Famotidine 20 MG TAB PO SCH (08:37)
[2020-10-15] MEDS: Cholecalciferol 1,000 UNITS (25 MCG) TAB PO SCH (08:37)
[2020-10-15] MEDS: Transdermal Patch Removal TOP SCH (08:38)
[2020-10-15 09:13] LABS: Hemoglobin 8.9 g/dL (12.0-16.0)
[2020-10-15 09:54] LABS: Anion Gap 12 mmol/L (10-20); BUN (Urea Nitrogen) 56 mg/dL (9.8-20.1); Calc. Creatinine Clearance 25 mL/min (70-130); Calcium 9.2 mg/dL (7.8-10.44); Carbon Dioxide 36 mmol/L (23-31); Chloride 90 mmol/L (98-107); Glucose 97 mg/dL (83-110); Potassium 3.4 mmol/L (3.5-5.1); Sodium 135 mmol/L (136-145)
[2020-10-15] MEDS ORDERED: Potassium Chloride 20 MEQ TAB PO SCH (10:30)
[2020-10-15] MEDS ORDERED: Carvedilol 6.25 MG TAB PO SCH (11:15)
[2020-10-15 13:01] LABS: Hemoglobin A1c 4.9 % (4.0-6.0)
[2020-10-15] MEDS: HumaLOG 300 UNITS/3 ML VIAL SC PRN (17:21)
[2020-10-15] MEDS: Carvedilol 6.25 MG TAB PO SCH (17:21)
[2020-10-15] MEDS: Polyethylene Glycol 3350 17 GM Packet PO PRN (20:38)
[2020-10-15] MEDS: Cyproheptadine 4 MG TAB PO SCH (20:39)
[2020-10-15] MEDS: Gabapentin 400 MG CAP PO SCH (20:39)
[2020-10-15] MEDS: Melatonin 3 MG TAB PO SCH (20:40)
[2020-10-15] MEDS: Mirtazapine 15 MG TAB PO SCH (20:41)
[2020-10-16] MEDS: Acetaminophen 325 MG TAB PO PRN ×2 (03:27→21:19)
[2020-10-16] MEDS: Levothyroxine Sodium 25 MCG TAB PO SCH (05:09)
[2020-10-16] MEDS ORDERED: Carvedilol 25 MG TAB PO SCH (08:30)
[2020-10-16] MEDS: Heparin 5,000 UNITS/ML VIAL SC SCH ×2 (08:48→21:21)
[2020-10-16] MEDS: Aspirin 81 mg Enteric Coated Tablet PO SCH (08:49)
[2020-10-16] MEDS: levETIRAcetam 500 MG TAB PO SCH ×2 (08:49→21:20)
[2020-10-16] MEDS: Amoxicillin/Potassium Clav 500 MG TAB PO SCH ×2 (08:50→21:37)
[2020-10-16] MEDS: Cholecalciferol 1,000 UNITS (25 MCG) TAB PO SCH (08:50)
[2020-10-16] MEDS: Loratadine 10 MG TAB PO SCH (08:50)
[2020-10-16] MEDS: predniSONE 20 MG TAB PO SCH (08:51)
[2020-10-16] MEDS: Famotidine 20 MG TAB PO SCH (08:51)
[2020-10-16] MEDS: Cyproheptadine 4 MG TAB PO SCH ×2 (08:51→21:37)
[2020-10-16] MEDS: Spironolactone 25 MG TAB PO SCH (08:51)
[2020-10-16] MEDS: Transdermal Patch Removal TOP SCH (08:52)
[2020-10-16 09:12] LABS: Anion Gap 13 mmol/L (10-20); BUN (Urea Nitrogen) 57 mg/dL (9.8-20.1); Calc. Creatinine Clearance 25 mL/min (70-130); Carbon Dioxide 32 mmol/L (23-31); Chloride 93 mmol/L (98-107); Glucose 98 mg/dL (83-110); Potassium 4.3 mmol/L (3.5-5.1); Sodium 134 mmol/L (136-145)
[2020-10-16] MEDS: Carvedilol 6.25 MG TAB PO SCH (09:57)
[2020-10-16 12:26] VITALS: BMI 26.6
[2020-10-16] MEDS: Carvedilol 25 MG TAB PO SCH (16:47)
[2020-10-16] MEDS ORDERED: Atorvastatin Calcium 10 MG TAB PO SCH (21:00)
[2020-10-16] MEDS: Gabapentin 400 MG CAP PO SCH (21:19)
[2020-10-16] MEDS: Melatonin 3 MG TAB PO SCH (21:20)
[2020-10-16] MEDS: Mirtazapine 15 MG TAB PO SCH (21:20)
[2020-10-16] MEDS: Lidocaine 5% Patch TD SCH (21:21)
[2020-10-17] MEDS: Acetaminophen 325 MG TAB PO PRN ×2 (01:20→14:56)
[2020-10-17] MEDS: Levothyroxine Sodium 25 MCG TAB PO SCH (05:10)
[2020-10-17] MEDS ORDERED: Furosemide 40 MG TAB PO SCH ×2 (07:30)
[2020-10-17] MEDS: Famotidine 20 MG TAB PO SCH (08:16)
[2020-10-17] MEDS: Aspirin 81 mg Enteric Coated Tablet PO SCH (08:16)
[2020-10-17] MEDS: Spironolactone 25 MG TAB PO SCH (08:17)
[2020-10-17] MEDS: Carvedilol 25 MG TAB PO SCH (08:17)
[2020-10-17] MEDS: Amoxicillin/Potassium Clav 500 MG TAB PO SCH (08:17)
[2020-10-17] MEDS: Cyproheptadine 4 MG TAB PO SCH (08:17)
[2020-10-17] MEDS: Loratadine 10 MG TAB PO SCH (08:17)
[2020-10-17] MEDS: Cholecalciferol 1,000 UNITS (25 MCG) TAB PO SCH (08:17)
[2020-10-17] MEDS: predniSONE 20 MG TAB PO SCH (08:17)
[2020-10-17] MEDS: levETIRAcetam 500 MG TAB PO SCH (08:17)
[2020-10-17] MEDS: Heparin 5,000 UNITS/ML VIAL SC SCH (08:19)
[2020-10-17] MEDS: Transdermal Patch Removal TOP SCH (08:24)
[2020-10-17] MEDS ORDERED: predniSONE 20 MG TAB PO SCH (09:00)
[2020-10-17 15:15] VITALS: BP 162/79; TEMP 98.6
[2020-10-18] MEDS ORDERED: predniSONE 20 MG TAB PO SCH (08:00)
== END 2020-10-17 16:20 | DRG 871 ==
LOC: ERS 21:59 → IMCU/EMU 23:30 → CCU 10-07 04:16 → T4-B 10-10 14:11 → 2NO 10-13 17:22
PROVIDERS: ADMIT Internal Medicine; ATTEND Family Medicine
DX: A41.9 Sepsis, unspecified organism (principal); N17.0 Acute kidney failure with tubular necrosis; G92 Toxic encephalopathy; Z66 Do not resuscitate; Z20.822 Contact with and (suspected) exposure to COVID-19; Z51.5 Encounter for palliative care; J69.0 Pneumonitis due to inhalation of food and vomit; J96.90 Respiratory failure, unspecified, unspecified whether with hypoxia or hypercapnia; I50.43 Acute on chronic combined systolic (congestive) and diastolic (congestive) heart failure; I42.9 Cardiomyopathy, unspecified; E87.1 Hypo-osmolality and hyponatremia; E87.2 Acidosis; I13.0 Hypertensive heart and chronic kidney disease with heart failure and stage 1 through stage 4 chronic kidney disease, or unspecified chronic kidney disease; R65.20 Severe sepsis without septic shock; T40.601A Poisoning by unspecified narcotics, accidental (unintentional), initial encounter; I25.10 Atherosclerotic heart disease of native coronary artery without angina pectoris; E78.5 Hyperlipidemia, unspecified; G40.909 Epilepsy, unspecified, not intractable, without status epilepticus; E03.9 Hypothyroidism, unspecified; G89.4 Chronic pain syndrome; E87.5 Hyperkalemia; F32.9 Major depressive disorder, single episode, unspecified; J30.2 Other seasonal allergic rhinitis; E78.00 Pure hypercholesterolemia, unspecified; M81.0 Age-related osteoporosis without current pathological fracture; D63.8 Anemia in other chronic diseases classified elsewhere; R79.89 Other specified abnormal findings of blood chemistry; D50.9 Iron deficiency anemia, unspecified; E11.22 Type 2 diabetes mellitus with diabetic chronic kidney disease; E55.9 Vitamin D deficiency, unspecified; N18.30 Chronic kidney disease, stage 3 unspecified; E87.6 Hypokalemia; Z86.73 Personal history of transient ischemic attack (TIA), and cerebral infarction without residual deficits; Z95.1 Presence of aortocoronary bypass graft; Z90.49 Acquired absence of other specified parts of digestive tract; Z95.5 Presence of coronary angioplasty implant and graft; Z79.899 Other long term (current) drug therapy; Z79.82 Long term (current) use of aspirin; Z79.890 Hormone replacement therapy; Z79.51 Long term (current) use of inhaled steroids; Z79.02 Long term (current) use of antithrombotics/antiplatelets
CPT/HCPCS: 0240U; 36415; 36416; 71045; 80048; 80177; 80306; 82436; 82533; 82570; 82728; 83036; 83540; 83550; 83735; 83880; 83970; 84133; 84156; 84300; 84443; 85014; 85018; 85025; 86038; 86225; 87040; 93005; 93010; 93306; 94640; 96365; 96366; J0360; J0692; J1644; J1815; J1940; J2310; J2405; J2916; J2920; J3370; J3475; J3480; J3490; J7030; J7050; J7070; J7512; J7620